=== PATIENT | female | born 1955 | race African-American/Black ===

== ENCOUNTER 2019-11-09 11:55 | Inpatient (IN) | payer MEDICARE ==
[2019-11-09] MEDS ORDERED: Acetaminophen 500 MG TAB PO PRN (19:03)
[2019-11-09] MEDS: INSULIN HUMAN REGULAR 100 UNIT/ML VIAL SUBQ SCH (21:51)
[2019-11-09] MEDS: Insulin Glargine 100 units/ml 10ml Vial SUBQ SCH (21:52)
--- NOTE | 2019-11-09 22:30 | History & Physical ---
ADMIT DATE: 11/09/2019 HISTORY OF PRESENT ILLNESS: The patient is a 64-year-old female with long history of diabetes mellitus, hypertension, degenerative joint disease, and psychosis, admitted to [facility] under Dr. De Guzman's service for evaluation and treatment. The patient is a poor historian. No chest pain, no shortness of breath, no nausea, no vomiting, no fever, no chills. PAST MEDICAL HISTORY: Significant for diabetes mellitus, hypertension, degenerative joint disease, psychosis, and dementia. PAST SURGICAL HISTORY: No recent surgery. ALLERGIES: None. MEDICATIONS: Follow admission reconciliation. SOCIAL HISTORY: No smoking, no alcohol, no drug. FAMILY HISTORY: Noncontributory. REVIEW OF SYSTEMS: RENAL SYSTEM: No history of chronic renal disorder. CARDIOVASCULAR SYSTEM: No coronary artery disease. She has history of hypertension. ENDOCRINE SYSTEM: She has history of diabetes mellitus. GASTROINTESTINAL SYSTEM: No upper or lower gastrointestinal bleed. NEUROLOGICAL SYSTEM: No seizure disorder. SKELETOMUSCULAR SYSTEM: She had degenerative joint disease. PHYSICAL EXAMINATION: GENERAL: She is awake, alert, mildly confused. VITAL SIGNS: Temperature 98.4, heart rate 80, blood pressure 156/75. HEENT: Normocephalic. Pupils reacting equal to light and accommodation. Sclerae clear. NECK: Supple. Negative for lymphadenopathy, JVD or bruit. CHEST: Entry of air bilaterally normal. No rhonchi or wheezing. HEART: S1, S2 normal. No murmur or gallop rhythm. ABDOMEN: Soft, bowel sounds positive. EXTREMITIES: No edema. NEUROLOGIC: She is awake, alert, mildly confused. No focal muscle deficits. Cranial nerves 2-12 are intact. ASSESSMENT: 1. Diabetes mellitus. 2. Hypertension. 3. Degenerative joint disease. 4. Psychosis. PLAN: The patient admitted to the hospital under Dr. De Guzman's service. Medical problems addressed during hospitalization is psychosis. Problems to be addressed at discharge are hypertension, diabetes mellitus, degenerative joint disease. The patient is medically stable for activity. The patient is a full code. Thank you Dr. De Guzman for assisting in the care of your patient. JOB# [id number]
[2019-11-10] MEDS: INSULIN HUMAN REGULAR 100 UNIT/ML VIAL SUBQ SCH (06:51)
[2019-11-10] MEDS ORDERED: Non-Formulary Item 1 EA (Hydrochlorothiazide [Hydrochlorothiazide] 12.5 MG) PO SCH (09:00)
[2019-11-10] MEDS ORDERED: Non-Formulary Item 1 EA (Lisinopril [Lisinopril] 30 MG) PO SCH (09:00)
[2019-11-10] MEDS: INSULIN LISPRO SLIDING SCALE 100 UNITS/ML UNIT SUBQ SCH ×3 (14:02→21:41)
--- NOTE | 2019-11-10 20:26 | Internal Medicine Prog Note ---
Internal Medicine Subjective - Subjective Service Date: 11/10/19 Patient seen and examined:: with staff (SHE IS CONFUSED AND AGITATED) Patient is:: awake, verbal, in bed, talking, agitated, confused Per staff patient has:: no adverse event Internal Medicine Objective - Results Recent Labs: Laboratory Last Values POC Glucose 127 MG/DL (70 - 105) H 11/10/19 16:31 - Physical Exam Vitals and I&O: Vital Signs Temp 97.7 F 11/10/19 14:00 Pulse 94 11/10/19 14:00 Resp 20 11/10/19 14:00 BP 146/82 11/10/19 14:00 Pulse Ox 98 11/10/19 14:00 Intake & Output 11/10/19 11/10/19 11/11/19 06:59 18:59 06:59 Intake Total 240 1200 Balance 240 1200 Weight (lbs) 54.431 kg Intake: Oral 240 1200 Other: # Voids 1 2 # Bowel Movements 0 0 Active Medications: Current Medications Acetaminophen (Tylenol) 650 mg PO Q4HR PRN PRN Reason: Pain (Mild 1-3) Stop: 01/08/20 19:02 Acetaminophen (Tylenol Extra Strength) 1,000 mg PO Q6H PRN PRN Reason: Pain (Moderate 4-6) Stop: 01/08/20 19:02 Divalproex Sodium (Depakote Dr) 500 mg PO BID [facility]; Protocol Stop: 01/09/20 10:59 Last Admin: 11/10/19 17:07 Dose: 500 mg Hydrochlorothiazide (Hctz) 12.5 mg PO DAILY [facility] Stop: 01/09/20 08:59 Last Admin: 11/10/19 09:00 Dose: 12.5 mg Insulin Glargine (Lantus Insulin) 10 units SUBQ HS [facility] Stop: 01/08/20 21:59 Last Admin: 11/09/19 21:52 Dose: Not Given Insulin Human Lispro (Humalog Insulin Sliding Scale) 0 units SUBQ ACHS [facility]; Protocol Stop: 01/08/20 20:59 Last Admin: 11/10/19 17:52 Dose: Not Given Lisinopril 10 mg/ Lisinopril (20 mg) 30 mg PO DAILY [facility] Stop: 01/10/20 08:59 Lorazepam (Ativan) 0.5 mg PO Q6HR PRN; Protocol PRN Reason: Anxiety Stop: 01/08/20 19:02 Quetiapine Fumarate (Seroquel) 50 mg PO BID [facility]; Protocol Stop: 01/09/20 10:59 Last Admin: 11/10/19 17:07 Dose: 50 mg Quetiapine Fumarate (Seroquel) 100 mg PO HS [facility]; Protocol Stop: 01/08/20 20:59 Trazodone HCl (Desyrel) 50 mg PO HS [facility]; Protocol Stop: 01/08/20 20:59 General: demented HEENT: NC/AT, PERRLA, EOMI, anicteric sclerae, throat clear Neck: Supple, No JVD, No thyromegaly, +2 carotid pulse wo bruit, No LAD Lungs: CTAB Cardiovascular: RRR, Normal S1, Normal S2, without murmur Abdomen: non-tender, non-distended Extremities: clear Neurological: no change Internal Medicine Assmt/Plan - Assessment Assessment: 1.DM. 2.HTN. 3.DJD. 4.PSYCHOSIS - Plan Plan: CONTINUE ON CURRENT MEDICATION AND DIET.
[2019-11-10] MEDS: Insulin Glargine 100 units/ml 10ml Vial SUBQ SCH (21:36)
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
[2019-11-11] MEDS: INSULIN LISPRO SLIDING SCALE 100 UNITS/ML UNIT SUBQ SCH ×4 (06:54→20:39)
--- NOTE | 2019-11-11 10:28 | Internal Medicine Prog Note ---
Internal Medicine Subjective - Subjective Service Date: 11/11/19 Patient seen and examined:: without staff (SHE IC), chart reviewed (SHE IS CONFUSED) Patient is:: awake, verbal, in bed, talking, agitated, confused Per staff patient has:: no adverse event Internal Medicine Objective - Results Recent Labs: Laboratory Last Values POC Glucose 127 MG/DL (70 - 105) H 11/10/19 16:31 - Physical Exam Vitals and I&O: Vital Signs Temp 97.1 F 11/11/19 06:40 Pulse 95 11/11/19 09:33 Resp 20 11/11/19 06:40 BP 140/52 11/11/19 09:33 Pulse Ox 97 11/11/19 06:40 Intake & Output 11/10/19 11/11/19 11/11/19 18:59 06:59 18:59 Intake Total 1200 240 Output Total 1 Balance 1200 239 Intake: Oral 1200 240 Output: Urine/Stool Mix 1 Other: # Voids 2 1 # Bowel Movements 0 Active Medications: Current Medications Acetaminophen (Tylenol) 650 mg PO Q4HR PRN PRN Reason: Pain (Mild 1-3) Stop: 01/08/20 19:02 Acetaminophen (Tylenol Extra Strength) 1,000 mg PO Q6H PRN PRN Reason: Pain (Moderate 4-6) Stop: 01/08/20 19:02 Divalproex Sodium (Depakote Dr) 500 mg PO BID [facility]; Protocol Stop: 01/09/20 10:59 Last Admin: 11/11/19 09:30 Dose: 500 mg Donepezil HCl (Aricept) 5 mg PO HS [facility] Stop: 01/10/20 20:59 Hydrochlorothiazide (Hctz) 12.5 mg PO DAILY [facility] Stop: 01/09/20 08:59 Last Admin: 11/11/19 09:31 Dose: 12.5 mg Insulin Glargine (Lantus Insulin) 10 units SUBQ HS [facility] Stop: 01/08/20 21:59 Last Admin: 11/10/19 21:36 Dose: 10 units Insulin Human Lispro (Humalog Insulin Sliding Scale) 0 units SUBQ ACHS [facility]; Protocol Stop: 01/08/20 20:59 Last Admin: 11/11/19 06:54 Dose: Not Given Lisinopril 10 mg/ Lisinopril (20 mg) 30 mg PO DAILY [facility] Stop: 01/10/20 08:59 Last Admin: 11/11/19 09:33 Dose: 30 mg Lorazepam (Ativan) 0.5 mg PO Q6HR PRN; Protocol PRN Reason: Anxiety Stop: 01/08/20 19:02 Quetiapine Fumarate (Seroquel) 50 mg PO BID [facility]; Protocol Stop: 01/09/20 10:59 Last Admin: 11/11/19 09:30 Dose: 50 mg Quetiapine Fumarate (Seroquel) 100 mg PO HS [facility]; Protocol Stop: 01/08/20 20:59 Last Admin: 11/10/19 21:36 Dose: 100 mg Trazodone HCl (Desyrel) 50 mg PO HS [facility]; Protocol Stop: 01/08/20 20:59 Last Admin: 11/10/19 21:36 Dose: 50 mg General: demented HEENT: NC/AT, PERRLA, EOMI, anicteric sclerae, throat clear Neck: Supple, No JVD, No thyromegaly, +2 carotid pulse wo bruit, No LAD Lungs: CTAB Cardiovascular: RRR, Normal S1, Normal S2, without murmur Abdomen: non-tender, non-distended Extremities: clear Neurological: no change Internal Medicine Assmt/Plan - Assessment Assessment: 1.DM. 2.HTN. 3.DJD. 4.PSYCHOSIS - Plan Plan: CONTINUE ON CURRENT MEDICATION AND DIET.
[2019-11-11] MEDS ORDERED: Magnesium Hydroxide (MOM) 30 mL UDC PO PRN (16:21)
--- NOTE | 2019-11-11 18:48 | Progress Notes ---
DATE: 11/11/2019 SUBJECTIVE: Chart was reviewed and the patient interviewed. Also discussed the patient's condition with the staff and reviewed records and labs. The patient continued to be severely confused and forgetful to the point that she is unable to eat on her own and staff has to help her with her eating. The patient also is forgetful and she is still wandering from one patient's room to another and needs close monitoring. The patient also is still having episodes of agitation and irritability with mood swings. Otherwise, the patient is compliant with taking her medications with no side effects of medications. ASSESSMENT: The patient is still severely confused and considered to be gravely disabled. TREATMENT PLAN: We will continue monitoring behavior and condition and continue current medications. We will add Aricept 5 mg at bedtime and we will continue to ____. JOB# [id number]
[2019-11-11] MEDS: Insulin Glargine 100 units/ml 10ml Vial SUBQ SCH (20:40)
[2019-11-12] MEDS: INSULIN LISPRO SLIDING SCALE 100 UNITS/ML UNIT SUBQ SCH ×4 (06:33→20:46)
--- NOTE | 2019-11-12 11:33 | Internal Medicine Prog Note ---
Internal Medicine Subjective - Subjective Service Date: 11/12/19 Patient seen and examined:: with staff (SHE FEELS WELL) Patient is:: awake, verbal, in bed, talking, agitated, confused Per staff patient has:: no adverse event Internal Medicine Objective - Results Recent Labs: Laboratory Last Values POC Glucose 136 MG/DL (70 - 105) H 11/12/19 05:54 - Physical Exam Vitals and I&O: Vital Signs Temp 98.2 F 11/12/19 06:32 Pulse 93 11/12/19 08:56 Resp 18 11/12/19 06:32 BP 149/110 11/12/19 08:56 Pulse Ox 94 11/12/19 06:32 Intake & Output 11/11/19 11/12/19 11/12/19 18:59 06:59 18:59 Intake Total 850 360 Output Total 1 Balance 850 359 Intake: Oral 850 360 Output: Urine/Stool Mix 1 Other: # Voids 3 2 # Bowel Movements 1 0 Active Medications: Current Medications Acetaminophen (Tylenol) 650 mg PO Q4HR PRN PRN Reason: Pain (Mild 1-3) Stop: 01/08/20 19:02 Acetaminophen (Tylenol Extra Strength) 1,000 mg PO Q6H PRN PRN Reason: Pain (Moderate 4-6) Stop: 01/08/20 19:02 Acetaminophen (Tylenol) 650 mg PO Q4HR PRN PRN Reason: Temperature Above 100 Stop: 01/10/20 16:20 Divalproex Sodium (Depakote Dr) 500 mg PO BID [facility]; Protocol Stop: 01/09/20 10:59 Last Admin: 11/12/19 08:54 Dose: 500 mg Donepezil HCl (Aricept) 5 mg PO HS [facility] Stop: 01/10/20 20:59 Last Admin: 11/11/19 21:25 Dose: Not Given Hydrochlorothiazide (Hctz) 12.5 mg PO DAILY [facility] Stop: 01/09/20 08:59 Last Admin: 11/12/19 08:54 Dose: 12.5 mg Insulin Glargine (Lantus Insulin) 10 units SUBQ [facility] Stop: 01/08/20 21:59 Last Admin: 11/11/19 20:40 Dose: 10 units Insulin Human Lispro (Humalog Insulin Sliding Scale) 0 units SUBQ [facility]; Protocol Stop: 01/08/20 20:59 Last Admin: 11/12/19 06:33 Dose: Not Given Lisinopril 10 mg/ Lisinopril (20 mg) 30 mg PO DAILY [facility] Stop: 01/10/20 08:59 Last Admin: 11/12/19 08:56 Dose: 30 mg Lorazepam (Ativan) 0.5 mg PO Q6HR PRN; Protocol PRN Reason: Anxiety Stop: 01/08/20 19:02 Magnesium Hydroxide (Milk Of Magnesia) 30 ml PO HS PRN PRN Reason: Constipation Quetiapine Fumarate (Seroquel) 100 mg PO HS [facility]; Protocol Stop: 01/08/20 20:59 Last Admin: 11/11/19 21:26 Dose: Not Given Quetiapine Fumarate (Seroquel) 100 mg PO BID [facility]; Protocol Stop: 01/11/20 08:59 Last Admin: 11/12/19 08:59 Dose: 100 mg Trazodone HCl (Desyrel) 50 mg PO HS [facility]; Protocol Stop: 01/08/20 20:59 Last Admin: 11/11/19 21:26 Dose: Not Given General: demented HEENT: NC/AT, PERRLA, EOMI, anicteric sclerae, throat clear Neck: Supple, No JVD, No thyromegaly, +2 carotid pulse wo bruit, No LAD Lungs: CTAB Cardiovascular: RRR, Normal S1, Normal S2, without murmur Abdomen: non-tender, non-distended Extremities: clear Neurological: no change Internal Medicine Assmt/Plan - Assessment Assessment: 1.DM. 2.HTN. 3.DJD. 4.PSYCHOSIS - Plan Plan: CONTINUE ON CURRENT MEDICATION AND DIET.
[2019-11-12] MEDS ORDERED: Potassium Chloride 20 mEq ER Tab PO ONE ×3 (17:02→23:00)
[2019-11-12] MEDS: Insulin Glargine 100 units/ml 10ml Vial SUBQ SCH (20:46)
[2019-11-13] MEDS: INSULIN LISPRO SLIDING SCALE 100 UNITS/ML UNIT SUBQ SCH ×4 (06:32→21:43)
--- NOTE | 2019-11-13 10:13 | Progress Notes ---
DATE: SUBJECTIVE: Chart reviewed and the patient interviewed. Also discussed the patient's condition with the staff and reviewed records and labs. The patient is still anxious and is still guarded. The patient also is still confused and in irritable mood and is still resisting care. The patient also is still interacting minimally with others. The patient also still wants to be left alone and is still acting bizarre and yesterday she did not pee on the floor, but personal hygiene is still very poor. Otherwise, the patient is compliant with taking her medications with no side effects of medications. ASSESSMENT: The patient is still confused and needs lots of redirections. TREATMENT PLAN: Continue to monitor behavior and condition closely. Also, continue Depakote 500 mg twice a day and Aricept that will be increased today to 10 mg every day. Also, continue to work on her irritability and confusion and continue to follow up. JOB# [id number]
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
--- NOTE | 2019-11-13 19:36 | Internal Medicine Prog Note ---
Internal Medicine Subjective - Subjective Service Date: 11/13/19 Patient seen and examined:: without staff (SHE FEELS WELL) Patient is:: awake, verbal, in bed, talking, agitated, confused Per staff patient has:: no adverse event Internal Medicine Objective - Results Recent Labs: Laboratory Last Values POC Glucose 141 MG/DL (70 - 105) H 11/13/19 17:01 - Physical Exam Vitals and I&O: Vital Signs Temp 98.0 F 11/12/19 21:06 Pulse 80 11/13/19 09:02 Resp 18 11/13/19 08:00 BP 109/64 11/13/19 09:02 Pulse Ox 94 11/12/19 21:06 Intake & Output 11/13/19 11/13/19 11/14/19 06:59 18:59 06:59 Intake Total 120 1200 Balance 120 1200 Intake: Oral 120 1200 Other: # Voids 2 # Bowel Movements 0 Active Medications: Current Medications Acetaminophen (Tylenol) 650 mg PO Q4HR PRN PRN Reason: Pain (Mild 1-3) Stop: 01/08/20 19:02 Acetaminophen (Tylenol Extra Strength) 1,000 mg PO Q6H PRN PRN Reason: Pain (Moderate 4-6) Stop: 01/08/20 19:02 Acetaminophen (Tylenol) 650 mg PO Q4HR PRN PRN Reason: Temperature Above 100 Stop: 01/10/20 16:20 Divalproex Sodium (Depakote Dr) 500 mg PO BID [facility]; Protocol Stop: 01/09/20 10:59 Last Admin: 11/13/19 17:41 Dose: 500 mg Donepezil HCl (Aricept) 10 mg PO [facility] Stop: 01/12/20 20:59 Hydrochlorothiazide (Hctz) 12.5 mg PO DAILY [facility] Stop: 01/09/20 08:59 Last Admin: 11/13/19 09:02 Dose: Not Given Insulin Glargine (Lantus Insulin) 10 units SUBQ [facility] Stop: 01/08/20 21:59 Last Admin: 11/12/19 20:46 Dose: 10 units Insulin Human Lispro (Humalog Insulin Sliding Scale) 0 units SUBQ [facility]; Protocol Stop: 01/08/20 20:59 Last Admin: 11/13/19 17:04 Dose: Not Given Lisinopril 10 mg/ Lisinopril (20 mg) 30 mg PO DAILY [facility] Stop: 01/10/20 08:59 Last Admin: 11/13/19 09:02 Dose: Not Given Lorazepam (Ativan) 0.5 mg PO Q6HR PRN; Protocol PRN Reason: Anxiety Stop: 01/08/20 19:02 Magnesium Hydroxide (Milk Of Magnesia) 30 ml PO HS PRN PRN Reason: Constipation Quetiapine Fumarate (Seroquel) 100 mg PO HS [facility]; Protocol Stop: 01/08/20 20:59 Last Admin: 11/12/19 20:45 Dose: 100 mg Quetiapine Fumarate (Seroquel) 100 mg PO BID [facility]; Protocol Stop: 01/11/20 08:59 Last Admin: 11/13/19 17:40 Dose: 100 mg Trazodone HCl (Desyrel) 50 mg PO HS [facility]; Protocol Stop: 01/08/20 20:59 Last Admin: 11/12/19 20:45 Dose: 50 mg General: demented HEENT: NC/AT, PERRLA, EOMI, anicteric sclerae, throat clear Neck: Supple, No JVD, No thyromegaly, +2 carotid pulse wo bruit, No LAD Lungs: CTAB Cardiovascular: RRR, Normal S1, Normal S2, without murmur Abdomen: non-tender, non-distended Extremities: clear Neurological: no change Internal Medicine Assmt/Plan - Assessment Assessment: 1.DM. 2.HTN. 3.DJD. 4.PSYCHOSIS - Plan Plan: CONTINUE ON CURRENT MEDICATION AND DIET. Nutritional Asmnt/Malnutr-PDOC - Dietary Evaluation Malnutrition Findings (Please click <Entered> for more info): Nutritional Asmnt/Malnutrition Start: 11/13/19 16: 08 Text: Status: Complete Freq: Protocol: Document 11/13/19 16:08 ELTON (Rec: 11/13/19 16:11 [email or web address]) Nutritional Asmnt/Malnutrition Patient General Information Nutritional Screening Moderate Risk Diagnosis Psychosis Pertinent Medical Hx/Surgical Hx DM, HTN, DJD, Psychosis Subjective Information Pt is a 64-year-old female admitted on 11/09 d/t agitation and psychosis. Pt is eating an estimated 60% of meals x3 days Per Meal/Nutrition Activity Record. Dietary is currently providing an estimated 1900 kcals and 96 gm Pro, per Pt PO intake this is providing an estimated 1140 kcals and 58gm Pro to meet 80% kcal and 100% Pro needs- adequate. Per nurse note (11/13 12:29), Yesterday, patient had abnormally low potassium level , 2.9. Dr. Weiss [Medical Doctor] ordered potassium supplement x 2. At [facility], NOC shift nurse indicated patient took only a partial second dose at 2300. Per Dr. Weiss orders, ripsaw matcher re-deep labs before lunch today. Awaiting results of potassium level. Anthropometrics HT: 5 FT WT: 120 LB (54.55 kg) BMI: 23.46 (Normal) GI/ Skin Integrity GI: WNL, Soft, Non-tender BM: 11/11 x1 I/O: 1320/Not Noted Skin: WNL, Intact Jeancarlos: 14 Diet Order: [facility] Estimated Energy Needs: ( Geriatric, CBW) 8274-6573 kcals (25-30 kcals/ kg) 55-65g Pro (1.0-1.2 g/kg) 4554-5917 ml (25-30 ml/kg) Current Diet Order/ Nutrition Support [facility] Pertinent Medications Hydrochlorothiazide, Lantus, INS-SS, MOM (PRN) Pertinent Labs POC Glucose (last 24 hours): 181, 118, 157 11/12: K 2.9, Glucose 173, BUN/ Cr 32/1.01, GFR 71 Nutritional Hx/Data Height 1.52 m Height (Calculated Centimeters) 152.4 Current Weight (lbs) 54.431 kg Weight (Calculated Kilograms) 54.4 Weight (Calculated Grams) 23249.1 [place] Body Weight 100 LB (45.45 kg) % [place] Body Weight 120 Body Mass Index (BMI) 23.4 Weight Status Approriate GI Symptoms Last BM 11/11 x1 Skin Integrity/Comment: Skin: WNL, Intact Jeancarlos: 14 Current %PO Fair (50-74%) Estimated Nutritional Goals BEE in Kcals: Using Current wt Calories/Kcals/Kg 25-30 Kcals Calculated 9501-8185 Protein: Using Current wt Protein g/k.0-1.2 Protein Calculated 55-65 Fluid: ml 3172-5904 ml (25-30 ml/kg) Nutritional Problem 1. Problem Problem Impaired nutrient utilization Etiology r/t endocrine dysfunction Signs/Symptoms: aeb Hx DM, labs (11/12) Glucose 173, POC Glucose (last 24 hours): 181, 118, 157. Malnutrition Related to Morbid Obesity Malnutrition related to morbid obesity No Intervention/Recommendation Comments 1.Continue CCHO diet as tolerated. 2.Continue antihyperglycemic medications for glucose control per MD order. Expected Outcomes/Goals Expected Outcomes/Goals 1.PO intake to continue to meet >75% of estimated nutritional needs. 2.Monitor PO intake, wt, nutrition related labs, and skin integrity. 3.F/U as low risk in 7-10 days , 11/20-11/23
[2019-11-13] MEDS: Insulin Glargine 100 units/ml 10ml Vial SUBQ SCH (21:37)
[2019-11-14] MEDS: INSULIN LISPRO SLIDING SCALE 100 UNITS/ML UNIT SUBQ SCH ×4 (06:43→20:39)
--- NOTE | 2019-11-14 08:38 | Progress Notes ---
DATE: 11/14/2019 SUBJECTIVE: Chart was reviewed and the patient interviewed. Also discussed the patient's condition with the staff and reviewed records and labs. The patient is still restless and is still extremely agitated. The patient also is still confused and she is still unable to provide any safe plan for self-care. She also is still restless and she still needs lots of redirections. She is unable to feed herself and staff have to monitor and help her with her eating. Otherwise, the patient continued to comply with taking her medications with no side effects of medications. ASSESSMENT: The patient is still confused and is still considered to be gravely disabled. TREATMENT PLAN: We will continue to monitor her behavior and her condition closely. Also, continue adjusting psychotropic medications. Also, we will place the patient on 5250 hold for grave disability and we will continue to follow up. JOB# [id number]
--- NOTE | 2019-11-14 20:23 | Internal Medicine Prog Note ---
Internal Medicine Subjective - Subjective Service Date: 11/14/19 Patient seen and examined:: without staff (SHE IS DOING WELL) Patient is:: awake, verbal, in bed, talking, agitated, confused Per staff patient has:: no adverse event Internal Medicine Objective - Results Recent Labs: Laboratory Last Values POC Glucose 155 MG/DL (70 - 105) H 11/14/19 19:54 - Physical Exam Vitals and I&O: Vital Signs Temp 98.1 F 11/14/19 20:03 Pulse 66 11/14/19 20:03 Resp 20 11/14/19 20:03 BP 124/65 11/14/19 20:03 Pulse Ox 97 11/14/19 20:03 Intake & Output 11/14/19 11/14/19 11/15/19 06:59 18:59 06:59 Intake Total 120 1200 240 Output Total 1 Balance 120 1200 239 Intake: Oral 120 1200 240 Output: Urine/Stool Mix 1 Other: # Voids 3 1 # Bowel Movements 1 1 Active Medications: Current Medications Acetaminophen (Tylenol) 650 mg PO Q4HR PRN PRN Reason: Pain (Mild 1-3) Stop: 01/08/20 19:02 Acetaminophen (Tylenol Extra Strength) 1,000 mg PO Q6H PRN PRN Reason: Pain (Moderate 4-6) Stop: 01/08/20 19:02 Acetaminophen (Tylenol) 650 mg PO Q4HR PRN PRN Reason: Temperature Above 100 Stop: 01/10/20 16:20 Divalproex Sodium (Depakote Dr) 500 mg PO BID [facility]; Protocol Stop: 01/09/20 10:59 Last Admin: 11/14/19 16:22 Dose: 500 mg Donepezil HCl (Aricept) 10 mg PO HS [facility] Stop: 01/12/20 20:59 Last Admin: 11/13/19 21:41 Dose: 10 mg Hydrochlorothiazide (Hctz) 12.5 mg PO DAILY [facility] Stop: 01/09/20 08:59 Last Admin: 11/14/19 08:30 Dose: 12.5 mg Insulin Glargine (Lantus Insulin) 10 units SUBQ HS [facility] Stop: 01/08/20 21:59 Last Admin: 11/13/19 21:37 Dose: 10 units Insulin Human Lispro (Humalog Insulin Sliding Scale) 0 units SUBQ [facility]; Protocol Stop: 01/08/20 20:59 Last Admin: 11/14/19 16:36 Dose: Not Given Lisinopril 10 mg/ Lisinopril (20 mg) 30 mg PO DAILY [facility] Stop: 01/10/20 08:59 Last Admin: 11/14/19 08:29 Dose: 30 mg Lorazepam (Ativan) 0.5 mg PO Q6HR PRN; Protocol PRN Reason: Anxiety Stop: 01/08/20 19:02 Last Admin: 11/14/19 09:05 Dose: 0.5 mg Magnesium Hydroxide (Milk Of Magnesia) 30 ml PO HS PRN PRN Reason: Constipation Quetiapine Fumarate (Seroquel) 100 mg PO HS [facility]; Protocol Stop: 01/08/20 20:59 Last Admin: 11/13/19 21:41 Dose: 100 mg Quetiapine Fumarate (Seroquel) 100 mg PO BID [facility]; Protocol Stop: 01/11/20 08:59 Last Admin: 11/14/19 16:22 Dose: 100 mg Trazodone HCl (Desyrel) 50 mg PO HS [facility]; Protocol Stop: 01/08/20 20:59 Last Admin: 11/13/19 21:41 Dose: 50 mg General: demented HEENT: NC/AT, PERRLA, EOMI, anicteric sclerae, throat clear Neck: Supple, No JVD, No thyromegaly, +2 carotid pulse wo bruit, No LAD Lungs: CTAB Cardiovascular: RRR, Normal S1, Normal S2, without murmur Abdomen: non-tender, non-distended Extremities: clear Neurological: no change Internal Medicine Assmt/Plan - Assessment Assessment: 1.DM. 2.HTN. 3.DJD. 4.PSYCHOSIS - Plan Plan: CONTINUE ON CURRENT MEDICATION AND DIET. Nutritional Asmnt/Malnutr-PDOC - Dietary Evaluation Malnutrition Findings (Please click <Entered> for more info): Nutritional Asmnt/Malnutrition Start: 11/13/19 16: 08 Text: Status: Complete Freq: Protocol: Document 11/13/19 16:08 ELTON (Rec: 11/13/19 16:11 ELTON [id number]) Nutritional Asmnt/Malnutrition Patient General Information Nutritional Screening Moderate Risk Diagnosis Psychosis Pertinent Medical Hx/Surgical Hx DM, HTN, DJD, Psychosis Subjective Information Pt is a 64-year-old female admitted on 11/09 d/t agitation and psychosis. Pt is eating an estimated 60% of meals x3 days Per Meal/Nutrition Activity Record. Dietary is currently providing an estimated 1900 kcals and 96 gm Pro, per Pt PO intake this is providing an estimated 1140 kcals and 58gm Pro to meet 80% kcal and 100% Pro needs- adequate. Per nurse note (11/13 12:29), Yesterday, patient had abnormally low potassium level , 2.9. Dr. Weiss [Medical Doctor] ordered potassium supplement x 2. At [facility], [facility] shift nurse indicated patient took only a partial second dose at 2300. Per Dr. Weiss orders, hat checker re-deep labs before lunch today. Awaiting results of potassium level. Anthropometrics HT: 5 FT WT: 120 LB (54.55 kg) BMI: 23.46 (Normal) GI/ Skin Integrity GI: WNL, Soft, Non-tender BM: 11/11 x1 I/O: 1320/Not Noted Skin: WNL, Intact Jeancarlos: 14 [facility] Estimated Energy Needs: ( Geriatric, CBW) 8558-3623 kcals (25-30 kcals/ kg) 55-65g Pro (1.0-1.2 g/kg) 3318-5730 ml (25-30 ml/kg) Current Diet Order/ Nutrition Support [facility] [place] Pertinent Medications Hydrochlorothiazide, Lantus, INS-SS, MOM (PRN) Pertinent Labs POC Glucose (last 24 hours): 181, 118, 157 11/12: K 2.9, Glucose 173, BUN/ Cr 32/1.01, GFR 71 Nutritional Hx/Data Height 1.52 m Height (Calculated Centimeters) 152.4 Current Weight (lbs) 54.431 kg Weight (Calculated Kilograms) 54.4 Weight (Calculated Grams) 98514.1 [place] Body Weight 100 LB (45.45 kg) % [place] Body Weight 120 Body Mass Index (BMI) 23.4 Weight Status Approriate GI Symptoms Last BM 11/11 x1 Skin Integrity/Comment: Skin: WNL, Intact Jeancarlos: 14 Current %PO Fair (50-74%) Estimated Nutritional Goals BEE in Kcals: Using Current wt Calories/Kcals/Kg 25-30 Kcals Calculated 2436-8411 Protein: Using Current wt Protein g/k.0-1.2 Protein Calculated 55-65 Fluid: ml 5338-2479 ml (25-30 ml/kg) Nutritional Problem 1. Problem Problem Impaired nutrient utilization Etiology r/t endocrine dysfunction Signs/Symptoms: aeb Hx DM, labs (11/12) Glucose 173, POC Glucose (last 24 hours): 181, 118, 157. Malnutrition Related to Morbid Obesity Malnutrition related to morbid obesity No Intervention/Recommendation Comments 1.Continue CCHO diet as tolerated. 2.Continue antihyperglycemic medications for glucose control per MD order. Expected Outcomes/Goals Expected Outcomes/Goals 1.PO intake to continue to meet >75% of estimated nutritional needs. 2.Monitor PO intake, wt, nutrition related labs, and skin integrity. 3.F/U as low risk in 7-10 days , 11/20-11/23
[2019-11-14] MEDS: Insulin Glargine 100 units/ml 10ml Vial SUBQ SCH (20:40)
[2019-11-15] MEDS: INSULIN LISPRO SLIDING SCALE 100 UNITS/ML UNIT SUBQ SCH ×4 (06:52→22:18)
--- NOTE | 2019-11-15 12:54 | General Progress Note ---
Subjective - Review of Systems Service Date: 11/15/19 Subjective: resting comfortably no distress Objective - Results Recent Labs: Laboratory Last Values POC Glucose 182 MG/DL (70 - 105) H 11/15/19 11:14 - Physical Exam Vitals and I&O: Vital Signs Temp 97.1 F 11/15/19 06:25 Pulse 81 11/15/19 08:44 Resp 17 11/15/19 07:57 BP 116/84 11/15/19 08:45 Pulse Ox 97 11/15/19 06:25 Intake & Output 11/14/19 11/15/19 11/15/19 18:59 06:59 18:59 Intake Total 1200 300 Output Total 1 Balance 1200 299 Intake: Oral 1200 300 Output: Urine/Stool Mix 1 Other: # Voids 1 # Bowel Movements 1 0 Active Medications: Current Medications Acetaminophen (Tylenol) 650 mg PO Q4HR PRN PRN Reason: Pain (Mild 1-3) Stop: 01/08/20 19:02 Acetaminophen (Tylenol Extra Strength) 1,000 mg PO Q6H PRN PRN Reason: Pain (Moderate 4-6) Stop: 01/08/20 19:02 Acetaminophen (Tylenol) 650 mg PO Q4HR PRN PRN Reason: Temperature Above 100 Stop: 01/10/20 16:20 Divalproex Sodium (Depakote Dr) 500 mg PO BID [facility]; Protocol Stop: 01/09/20 10:59 Last Admin: 11/15/19 08:43 Dose: 500 mg Donepezil HCl (Aricept) 10 mg PO [facility] Stop: 01/12/20 20:59 Last Admin: 11/14/19 20:37 Dose: 10 mg Hydrochlorothiazide (Hctz) 12.5 mg PO DAILY [facility] Stop: 01/09/20 08:59 Last Admin: 11/15/19 08:45 Dose: 12.5 mg Insulin Glargine (Lantus Insulin) 10 units SUBQ [facility] Stop: 01/08/20 21:59 Last Admin: 11/14/19 20:40 Dose: 10 units Insulin Human Lispro (Humalog Insulin Sliding Scale) 0 units SUBQ [facility]; Protocol Stop: 01/08/20 20:59 Last Admin: 11/15/19 11:19 Dose: 2 units Lisinopril 10 mg/ Lisinopril (20 mg) 30 mg PO DAILY [facility] Stop: 01/10/20 08:59 Last Admin: 11/15/19 08:44 Dose: 30 mg Lorazepam (Ativan) 0.5 mg PO Q6HR PRN; Protocol PRN Reason: Anxiety Stop: 01/08/20 19:02 Last Admin: 11/14/19 09:05 Dose: 0.5 mg Magnesium Hydroxide (Milk Of Magnesia) 30 ml PO HS PRN PRN Reason: Constipation Quetiapine Fumarate (Seroquel) 100 mg PO HS [facility]; Protocol Stop: 01/08/20 20:59 Last Admin: 11/14/19 20:37 Dose: 100 mg Quetiapine Fumarate (Seroquel) 100 mg PO BID [facility]; Protocol Stop: 01/11/20 08:59 Last Admin: 11/15/19 08:45 Dose: 100 mg Trazodone HCl (Desyrel) 50 mg PO HS [facility]; Protocol Stop: 01/08/20 20:59 Last Admin: 11/14/19 20:37 Dose: 50 mg General: No acute distress HEENT: Atraumatic, PERRLA Neck: Supple, JVD, Thyromegaly Cardiovascular: Regular rate, Normal S1, Normal S2 Lungs: Clear to auscultation Abdomen: Bowel sounds, Soft Assessment/Plan - Assessment Assessment: 1.DM. 2.HTN. 3.DJD. 4.PSYCHOSIS - Plan Plan: continue current treatment Nutritional Asmnt/Malnutr-PDOC - Dietary Evaluation Malnutrition Findings (Please click <Entered> for more info): Nutritional Asmnt/Malnutrition Start: 11/13/19 16: 08 Text: Status: Complete Freq: Protocol: Document 11/13/19 16:08 ELTON (Rec: 11/13/19 16:11 ELTON [id number]) Nutritional Asmnt/Malnutrition Patient General Information Nutritional Screening Moderate Risk Diagnosis Psychosis Pertinent Medical Hx/Surgical Hx DM, HTN, DJD, Psychosis Subjective Information Pt is a 64-year-old female admitted on 11/09 d/t agitation and psychosis. Pt is eating an estimated 60% of meals x3 days Per Meal/Nutrition Activity Record. Dietary is currently providing an estimated 1900 kcals and 96 gm Pro, per Pt PO intake this is providing an estimated 1140 kcals and 58gm Pro to meet 80% kcal and 100% Pro needs- adequate. Per nurse note (11/13 12:29), Yesterday, patient had abnormally low potassium level , 2.9. Dr. Weiss [Medical Doctor] ordered potassium supplement x 2. At [facility] shift nurse indicated patient took only a partial second dose at 2300. Per Dr. Weiss orders, global consumer sector vice president re-deep labs before lunch today. Awaiting results of potassium level. Anthropometrics HT: 5 FT WT: 120 LB (54.55 kg) BMI: 23.46 (Normal) GI/ Skin Integrity GI: WNL, Soft, Non-tender BM: 11/11 x1 I/O: 1320/Not Noted Skin: WNL, Intact Jeancarlos: 14 Diet Order: [facility] Estimated Energy Needs: ( Geriatric, CBW) 5975-7033 kcals (25-30 kcals/ kg) 55-65g Pro (1.0-1.2 g/kg) 1592-6001 ml (25-30 ml/kg) Current Diet Order/ Nutrition Support [facility] Pertinent Medications Hydrochlorothiazide, Lantus, INS-SS, MOM (PRN) Pertinent Labs POC Glucose (last 24 hours): 181, 118, 157 11/12: K 2.9, Glucose 173, BUN/ Cr 32/1.01, GFR 71 Nutritional Hx/Data Height 1.52 m Height (Calculated Centimeters) 152.4 Current Weight (lbs) 54.431 kg Weight (Calculated Kilograms) 54.4 Weight (Calculated Grams) 63639.1 [place] Body Weight 100 LB (45.45 kg) % [place] Body Weight 120 Body Mass Index (BMI) 23.4 Weight Status Approriate GI Symptoms Last BM 11/11 x1 Skin Integrity/Comment: Skin: WNL, Intact Jeancarlos: 14 Current %PO Fair (50-74%) Estimated Nutritional Goals BEE in Kcals: Using Current wt Calories/Kcals/Kg 25-30 Kcals Calculated 1526-5226 Protein: Using Current wt Protein g/k.0-1.2 Protein Calculated 55-65 Fluid: ml 4740-6813 ml (25-30 ml/kg) Nutritional Problem 1. Problem Problem Impaired nutrient utilization Etiology r/t endocrine dysfunction Signs/Symptoms: aeb Hx DM, labs (11/12) Glucose 173, POC Glucose (last 24 hours): 181, 118, 157. Malnutrition Related to Morbid Obesity Malnutrition related to morbid obesity No Intervention/Recommendation Comments 1.Continue CCHO diet as tolerated. 2.Continue antihyperglycemic medications for glucose control per MD order. Expected Outcomes/Goals Expected Outcomes/Goals 1.PO intake to continue to meet >75% of estimated nutritional needs. 2.Monitor PO intake, wt, nutrition related labs, and skin integrity. 3.F/U as low risk in 7-10 days , 11/20-11/23
--- NOTE | 2019-11-15 18:17 | Psych Progress Note ---
Psych Progress Note - Intro Date of Progress Note: 11/15/19 - Assessment Assessment: Patient interviewed, case discussed with staff, chart and records reviewed. Dr. Jackson covering for Dr. De Guzman. Per staff reports the patient has been disorganized easily agitated uncooperative with care and needs constant redirection and assistance with ADLs. The patient was poorly cooperative with the interview unwilling to speak with this provider unable to provide obtain any history at this time. - Vitals, I&O Vitals: Vital Signs - 24 hr 11/14/19 11/15/19 11/15/19 20:03 06:25 07:57 Temp 98.1 F 97.1 F HR 66 81 RR 20 19 17 BP 124/65 116/84 O2 Sat % 97 97 11/15/19 11/15/19 11/15/19 08:44 08:45 14:53 Temp 97.5 F HR 81 84 RR 20 BP 116/84 116/84 105/84 O2 Sat % 96 - Plan Plan: Continues with poor insight and poor judgment and significant thought disorganization. Continue current treatment plan and continue to monitor behaviors. - Review of Relevant Data Review of Relevant Data: I have reviewed the following items and time katie (where applicable) has been applied. - Medications Current Medications: Current Medications Acetaminophen (Tylenol) 650 mg PO Q4HR PRN PRN Reason: Pain (Mild 1-3) Stop: 01/08/20 19:02 Acetaminophen (Tylenol Extra Strength) 1,000 mg PO Q6H PRN PRN Reason: Pain (Moderate 4-6) Stop: 01/08/20 19:02 Acetaminophen (Tylenol) 650 mg PO Q4HR PRN PRN Reason: Temperature Above 100 Stop: 01/10/20 16:20 Divalproex Sodium (Depakote Dr) 500 mg PO BID [facility]; Protocol Stop: 01/09/20 10:59 Last Admin: 11/15/19 16:40 Dose: 500 mg Donepezil HCl (Aricept) 10 mg PO HS [facility] Stop: 01/12/20 20:59 Last Admin: 11/14/19 20:37 Dose: 10 mg Hydrochlorothiazide (Hctz) 12.5 mg PO DAILY [facility] Stop: 01/09/20 08:59 Last Admin: 11/15/19 08:45 Dose: 12.5 mg Insulin Glargine (Lantus Insulin) 10 units SUBQ [facility] Stop: 01/08/20 21:59 Last Admin: 11/14/19 20:40 Dose: 10 units Insulin Human Lispro (Humalog Insulin Sliding Scale) 0 units SUBQ [facility]; Protocol Stop: 01/08/20 20:59 Last Admin: 11/15/19 16:22 Dose: Not Given Lisinopril 10 mg/ Lisinopril (20 mg) 30 mg PO DAILY [facility] Stop: 01/10/20 08:59 Last Admin: 11/15/19 08:44 Dose: 30 mg Lorazepam (Ativan) 0.5 mg PO Q6HR PRN; Protocol PRN Reason: Anxiety Stop: 01/08/20 19:02 Last Admin: 11/14/19 09:05 Dose: 0.5 mg Magnesium Hydroxide (Milk Of Magnesia) 30 ml PO HS PRN PRN Reason: Constipation Quetiapine Fumarate (Seroquel) 100 mg PO [facility]; Protocol Stop: 01/08/20 20:59 Last Admin: 11/14/19 20:37 Dose: 100 mg Quetiapine Fumarate (Seroquel) 100 mg PO BID [facility]; Protocol Stop: 01/11/20 08:59 Last Admin: 11/15/19 16:40 Dose: 100 mg Trazodone HCl (Desyrel) 50 mg PO [facility]; Protocol Stop: 01/08/20 20:59 Last Admin: 11/14/19 20:37 Dose: 50 mg
[2019-11-15] MEDS: Insulin Glargine 100 units/ml 10ml Vial SUBQ SCH (22:17)
[2019-11-16] MEDS: INSULIN LISPRO SLIDING SCALE 100 UNITS/ML UNIT SUBQ SCH ×4 (06:36→20:47)
--- NOTE | 2019-11-16 07:57 | Progress Notes ---
DATE: 11/16/2019 SUBJECTIVE: A 64-year-old female transferred from [facility] agitation and psychosis, irritability, anger on [id number], the patient is sleeping, arousable, but refusing to speak with me. Slept about 8-9 hours. Ongoing symptoms, concerns for impulse control, needing a lot of redirection, prompting, poor orientation. Medications were noted. We will continue inpatient monitoring, history of dementia. JOB# [id number]
--- NOTE | 2019-11-16 12:44 | General Progress Note ---
Subjective - Review of Systems Service Date: 11/16/19 Subjective: resting comfortably no distress Objective - Results Recent Labs: Laboratory Last Values POC Glucose 149 MG/DL (70 - 105) H 11/16/19 11:03 - Physical Exam Vitals and I&O: Vital Signs Temp 97.0 F 11/16/19 06:02 Pulse 69 11/16/19 09:23 Resp 19 11/16/19 06:02 BP 110/64 11/16/19 09:24 Pulse Ox 99 11/16/19 06:02 Intake & Output 11/15/19 11/16/19 11/16/19 18:59 06:59 18:59 Intake Total 900 300 Balance 900 300 Intake: Oral 900 300 Other: # Voids 4 1 # Bowel Movements 0 0 Active Medications: Current Medications Acetaminophen (Tylenol) 650 mg PO Q4HR PRN PRN Reason: Pain (Mild 1-3) Stop: 01/08/20 19:02 Acetaminophen (Tylenol Extra Strength) 1,000 mg PO Q6H PRN PRN Reason: Pain (Moderate 4-6) Stop: 01/08/20 19:02 Acetaminophen (Tylenol) 650 mg PO Q4HR PRN PRN Reason: Temperature Above 100 Stop: 01/10/20 16:20 Divalproex Sodium (Depakote Dr) 500 mg PO BID [facility]; Protocol Stop: 01/09/20 10:59 Last Admin: 11/16/19 09:24 Dose: 500 mg Donepezil HCl (Aricept) 10 mg PO [facility] Stop: 01/12/20 20:59 Last Admin: 11/15/19 21:54 Dose: 10 mg Hydrochlorothiazide (Hctz) 12.5 mg PO DAILY [facility] Stop: 01/09/20 08:59 Last Admin: 11/16/19 09:24 Dose: 12.5 mg Insulin Glargine (Lantus Insulin) 10 units SUBQ HS [facility] Stop: 01/08/20 21:59 Last Admin: 11/15/19 22:17 Dose: 10 units Insulin Human Lispro (Humalog Insulin Sliding Scale) 0 units SUBQ [facility]; Protocol Stop: 01/08/20 20:59 Last Admin: 11/16/19 11:24 Dose: Not Given Lisinopril 10 mg/ Lisinopril (20 mg) 30 mg PO DAILY [facility] Stop: 01/10/20 08:59 Last Admin: 11/16/19 09:23 Dose: 30 mg Lorazepam (Ativan) 0.5 mg PO Q6HR PRN; Protocol PRN Reason: Anxiety Stop: 01/08/20 19:02 Last Admin: 11/15/19 21:54 Dose: 0.5 mg Magnesium Hydroxide (Milk Of Magnesia) 30 ml PO HS PRN PRN Reason: Constipation Quetiapine Fumarate (Seroquel) 100 mg PO HS [facility]; Protocol Stop: 01/08/20 20:59 Last Admin: 11/15/19 21:54 Dose: 100 mg Quetiapine Fumarate (Seroquel) 100 mg PO BID [facility]; Protocol Stop: 01/11/20 08:59 Last Admin: 11/16/19 09:24 Dose: 100 mg Trazodone HCl (Desyrel) 50 mg PO HS [facility]; Protocol Stop: 01/08/20 20:59 Last Admin: 11/15/19 21:54 Dose: 50 mg General: No acute distress HEENT: Atraumatic, PERRLA Neck: Supple, JVD, Thyromegaly Cardiovascular: Regular rate, Normal S1, Normal S2 Lungs: Clear to auscultation Abdomen: Bowel sounds, Soft Assessment/Plan - Assessment Assessment: 1.DM. 2.HTN. 3.DJD. 4.PSYCHOSIS - Plan Plan: continue current treatment Nutritional Asmnt/Malnutr-PDOC - Dietary Evaluation Malnutrition Findings (Please click <Entered> for more info): Nutritional Asmnt/Malnutrition Start: 11/13/19 16: 08 Text: Status: Complete Freq: Protocol: Document 11/13/19 16:08 ELTON (Rec: 11/13/19 16:11 ELTON [id number]) Nutritional Asmnt/Malnutrition Patient General Information Nutritional Screening Moderate Risk Diagnosis Psychosis Pertinent Medical Hx/Surgical Hx DM, HTN, DJD, Psychosis Subjective Information Pt is a 64-year-old female admitted on 11/09 d/t agitation and psychosis. Pt is eating an estimated 60% of meals x3 days Per Meal/Nutrition Activity Record. Dietary is currently providing an estimated 1900 kcals and 96 gm Pro, per Pt PO intake this is providing an estimated 1140 kcals and 58gm Pro to meet 80% kcal and 100% Pro needs- adequate. Per nurse note (11/13 12:29), Yesterday, patient had abnormally low potassium level , 2.9. Dr. Wiess [Medical Doctor] ordered potassium supplement x 2. At [facility] shift nurse indicated patient took only a partial second dose at 2300. Per Dr. Weiss orders, custom bow maker re-deep labs before lunch today. Awaiting results of potassium level. Anthropometrics HT: 5 FT WT: 120 LB (54.55 kg) BMI: 23.46 (Normal) GI/ Skin Integrity GI: WNL, Soft, Non-tender BM: 11/11 x1 I/O: 1320/Not Noted Skin: WNL, Intact Jeancarlos: 14 Diet Order: [facility] Estimated Energy Needs: ( Geriatric, CBW) 7282-8444 kcals (25-30 kcals/ kg) 55-65g Pro (1.0-1.2 g/kg) 6939-2798 ml (25-30 ml/kg) Current Diet Order/ Nutrition Support [facility] Pertinent Medications Hydrochlorothiazide, Lantus, INS-SS, MOM (PRN) Pertinent Labs POC Glucose (last 24 hours): 181, 118, 157 11/12: K 2.9, Glucose 173, BUN/ Cr 32/1.01, GFR 71 Nutritional Hx/Data Height 1.52 m Height (Calculated Centimeters) 152.4 Current Weight (lbs) 54.431 kg Weight (Calculated Kilograms) 54.4 Weight (Calculated Grams) 05902.1 [place] Body Weight 100 LB (45.45 kg) % [place] Body Weight 120 Body Mass Index (BMI) 23.4 Weight Status Approriate GI Symptoms Last BM 11/11 x1 Skin Integrity/Comment: Skin: WNL, Intact Jeancarlos: 14 Current %PO Fair (50-74%) Estimated Nutritional Goals BEE in Kcals: Using Current wt Calories/Kcals/Kg 25-30 Kcals Calculated 9532-4597 Protein: Using Current wt Protein g/k.0-1.2 Protein Calculated 55-65 Fluid: ml 2410-3962 ml (25-30 ml/kg) Nutritional Problem 1. Problem Problem Impaired nutrient utilization Etiology r/t endocrine dysfunction Signs/Symptoms: aeb Hx DM, labs (11/12) Glucose 173, POC Glucose (last 24 hours): 181, 118, 157. Malnutrition Related to Morbid Obesity Malnutrition related to morbid obesity No Intervention/Recommendation Comments 1.Continue CCHO diet as tolerated. 2.Continue antihyperglycemic medications for glucose control per MD order. Expected Outcomes/Goals Expected Outcomes/Goals 1.PO intake to continue to meet >75% of estimated nutritional needs. 2.Monitor PO intake, wt, nutrition related labs, and skin integrity. 3.F/U as low risk in 7-10 days , 11/20-11/23
[2019-11-16] MEDS: Insulin Glargine 100 units/ml 10ml Vial SUBQ SCH (20:45)
[2019-11-17] MEDS: INSULIN LISPRO SLIDING SCALE 100 UNITS/ML UNIT SUBQ SCH ×4 (07:11→21:27)
[2019-11-17 16:07] VITALS: BP 163/90
--- NOTE | 2019-11-17 20:01 | Internal Medicine Prog Note ---
Internal Medicine Subjective - Subjective Service Date: 11/17/19 Patient seen and examined:: without staff (SHE IS CONFUSED) Patient is:: awake, verbal, in bed, talking, agitated, confused Per staff patient has:: no adverse event Internal Medicine Objective - Results Recent Labs: Laboratory Last Values POC Glucose 87 MG/DL (70 - 105) 11/17/19 06:33 - Physical Exam Vitals and I&O: Vital Signs Temp 97.8 F 11/17/19 14:00 Pulse 79 11/17/19 14:00 Resp 18 11/17/19 14:00 BP 127/71 11/17/19 14:00 Pulse Ox 100 11/17/19 14:00 Intake & Output 11/17/19 11/17/19 11/18/19 06:59 18:59 06:59 Intake Total 240 880 Output Total 1 Balance 239 880 Intake: Oral 240 640 Other 240 Output: Urine/Stool Mix 1 Other: # Voids 3 3 # Bowel Movements 0 1 Active Medications: Current Medications Acetaminophen (Tylenol) 650 mg PO Q4HR PRN PRN Reason: Pain (Mild 1-3) Stop: 01/08/20 19:02 Acetaminophen (Tylenol Extra Strength) 1,000 mg PO Q6H PRN PRN Reason: Pain (Moderate 4-6) Stop: 01/08/20 19:02 Acetaminophen (Tylenol) 650 mg PO Q4HR PRN PRN Reason: Temperature Above 100 Stop: 01/10/20 16:20 Divalproex Sodium (Depakote Dr) 500 mg PO BID [facility]; Protocol Stop: 01/09/20 10:59 Last Admin: 11/17/19 16:26 Dose: Not Given Donepezil HCl (Aricept) 10 mg PO HS [facility] Stop: 01/12/20 20:59 Last Admin: 11/16/19 20:42 Dose: 10 mg Hydrochlorothiazide (Hctz) 12.5 mg PO DAILY [facility] Stop: 01/09/20 08:59 Last Admin: 11/17/19 08:34 Dose: 12.5 mg Insulin Glargine (Lantus Insulin) 10 units SUBQ HS [facility] Stop: 01/08/20 21:59 Last Admin: 11/16/19 20:45 Dose: 10 units Insulin Human Lispro (Humalog Insulin Sliding Scale) 0 units SUBQ [facility]; Protocol Stop: 01/08/20 20:59 Last Admin: 11/17/19 16:26 Dose: Not Given Lisinopril 10 mg/ Lisinopril (20 mg) 30 mg PO DAILY [facility] Stop: 01/10/20 08:59 Last Admin: 11/17/19 08:35 Dose: 30 mg Lorazepam (Ativan) 0.5 mg PO Q6HR PRN; Protocol PRN Reason: Anxiety Stop: 01/08/20 19:02 Last Admin: 11/16/19 20:44 Dose: 0.5 mg Magnesium Hydroxide (Milk Of Magnesia) 30 ml PO HS PRN PRN Reason: Constipation Quetiapine Fumarate (Seroquel) 100 mg PO HS [facility]; Protocol Stop: 01/08/20 20:59 Last Admin: 11/16/19 20:43 Dose: 100 mg Quetiapine Fumarate (Seroquel) 100 mg PO BID [facility]; Protocol Stop: 01/11/20 08:59 Last Admin: 11/17/19 16:26 Dose: Not Given Trazodone HCl (Desyrel) 50 mg PO HS [facility]; Protocol Stop: 01/08/20 20:59 Last Admin: 11/16/19 20:42 Dose: 50 mg General: demented HEENT: NC/AT, PERRLA, EOMI, anicteric sclerae, throat clear Neck: Supple, No JVD, No thyromegaly, +2 carotid pulse wo bruit, No LAD Lungs: CTAB Cardiovascular: RRR, Normal S1, Normal S2, without murmur Abdomen: non-tender, non-distended Extremities: clear Neurological: no change Internal Medicine Assmt/Plan - Assessment Assessment: 1.DM. 2.HTN. 3.DJD. 4.PSYCHOSIS - Plan Plan: CONTINUE ON CURRENT MEDICATION AND DIET. Nutritional Asmnt/Malnutr-PDOC - Dietary Evaluation Malnutrition Findings (Please click <Entered> for more info): Nutritional Asmnt/Malnutrition Start: 11/13/19 16: 08 Text: Status: Complete Freq: Protocol: Document 11/13/19 16:08 ELTON (Rec: 11/13/19 16:11 ELTON [email or web address]) Nutritional Asmnt/Malnutrition Patient General Information Nutritional Screening Moderate Risk Diagnosis Psychosis Pertinent Medical Hx/Surgical Hx DM, HTN, DJD, Psychosis Subjective Information Pt is a 64-year-old female admitted on 11/09 d/t agitation and psychosis. Pt is eating an estimated 60% of meals x3 days Per Meal/Nutrition Activity Record. Dietary is currently providing an estimated 1900 kcals and 96 gm Pro, per Pt PO intake this is providing an estimated 1140 kcals and 58gm Pro to meet 80% kcal and 100% Pro needs- adequate. Per nurse note (11/13 12:29), Yesterday, patient had abnormally low potassium level , 2.9. Dr. Weiss [Medical Doctor] ordered potassium supplement x 2. At [facility], NOC shift nurse indicated patient took only a partial second dose at 2300. Per Dr. Weiss orders, personal care home administrator re-deep labs before lunch today. Awaiting results of potassium level. Anthropometrics HT: 5 FT WT: 120 LB (54.55 kg) BMI: 23.46 (Normal) GI/ Skin Integrity GI: WNL, Soft, Non-tender BM: 11/11 x1 I/O: 1320/Not Noted Skin: WNL, Intact Jeancarlos: 14 [facility] Estimated Energy Needs: ( Geriatric, CBW) 4081-1963 kcals (25-30 kcals/ kg) 55-65g Pro (1.0-1.2 g/kg) 1465-7753 ml (25-30 ml/kg) Current Diet Order/ Nutrition Support [facility] [place] Pertinent Medications Hydrochlorothiazide, Lantus, INS-SS, MOM (PRN) Pertinent Labs POC Glucose (last 24 hours): 181, 118, 157 11/12: K 2.9, Glucose 173, BUN/ Cr 32/1.01, GFR 71 Nutritional Hx/Data Height 1.52 m Height (Calculated Centimeters) 152.4 Current Weight (lbs) 54.431 kg Weight (Calculated Kilograms) 54.4 Weight (Calculated Grams) 43348.1 [place] Body Weight 100 LB (45.45 kg) % [place] Body Weight 120 Body Mass Index (BMI) 23.4 Weight Status Approriate GI Symptoms Last BM 11/11 x1 Skin Integrity/Comment: Skin: WNL, Intact Jeancarlos: 14 Current %PO Fair (50-74%) Estimated Nutritional Goals BEE in Kcals: Using Current wt Calories/Kcals/Kg 25-30 Kcals Calculated 8328-5489 Protein: Using Current wt Protein g/k.0-1.2 Protein Calculated 55-65 Fluid: ml 1603-8864 ml (25-30 ml/kg) Nutritional Problem 1. Problem Problem Impaired nutrient utilization Etiology r/t endocrine dysfunction Signs/Symptoms: aeb Hx DM, labs (11/12) Glucose 173, POC Glucose (last 24 hours): 181, 118, 157. Malnutrition Related to Morbid Obesity Malnutrition related to morbid obesity No Intervention/Recommendation Comments 1.Continue CCHO diet as tolerated. 2.Continue antihyperglycemic medications for glucose control per MD order. Expected Outcomes/Goals Expected Outcomes/Goals 1.PO intake to continue to meet >75% of estimated nutritional needs. 2.Monitor PO intake, wt, nutrition related labs, and skin integrity. 3.F/U as low risk in 7-10 days , 11/20-11/23
[2019-11-17] MEDS: Insulin Glargine 100 units/ml 10ml Vial SUBQ SCH (21:26)
[2019-11-18] MEDS: INSULIN LISPRO SLIDING SCALE 100 UNITS/ML UNIT SUBQ SCH ×4 (06:53→21:09)
--- NOTE | 2019-11-18 09:48 | Progress Notes ---
DATE: 11/17/2019 SUBJECTIVE: Chart was reviewed and the patient interviewed. Also discussed the patient's condition with the staff and reviewed records and labs. The patient is still anxious and is still in a depressed mood. The patient also is still restless and wants to be left alone and isolate herself. The patient also is still argumentative and is still aggressive with the staff. Also, still hallucinating and talking to herself. Otherwise, the patient continues to compliance taking her Seroquel and Depakote as well as Aricept with no side effects. ASSESSMENT: The patient is still psychotic and needs close monitoring. TREATMENT PLAN: Continue to monitor behavior and condition closely and continue adjusting psychotropic medications and work on her irritability and agitation. [facility]# [id number]
--- NOTE | 2019-11-18 16:27 | Progress Notes ---
DATE: 11/18/2019 PSYCHIATRIC PROGRESS NOTE SUBJECTIVE: Chart reviewed and the patient interviewed. Also discussed the patient's condition with the staff and reviewed records and labs. The patient is still very manicky and is still very irritable. The patient also is still suspicious and is still paranoid. The patient also is still unkempt and ADLs are poor. She is also rambling and she is still asking to go to "[place]," but she does not know exactly where to go and she is still unable to provide any safe plan for self-care. Also, she is still easily irritable and easily agitated. ASSESSMENT: The patient is still manicky and is still in irritable and angry mood. TREATMENT PLAN: Continue to monitor behavior and condition closely. Also, we will increase Seroquel to 100 mg twice a day. Also, get Depakote blood level and continue to follow up closely. JOB# [id number]
[2019-11-18] MEDS: Insulin Glargine 100 units/ml 10ml Vial SUBQ SCH (21:08)
--- NOTE | 2019-11-18 21:53 | Internal Medicine Prog Note ---
Internal Medicine Subjective - Subjective Service Date: 11/18/19 Patient seen and examined:: without staff (SHE IS DOING WELL) Patient is:: awake, verbal, in bed, talking, agitated, confused Per staff patient has:: no adverse event Internal Medicine Objective - Results Recent Labs: Laboratory Last Values POC Glucose 109 MG/DL (70 - 105) H 11/18/19 20:42 - Physical Exam Vitals and I&O: Vital Signs Temp 97 F 11/18/19 20:00 Pulse 83 11/18/19 20:00 Resp 18 11/18/19 20:00 BP 129/73 11/18/19 20:00 Pulse Ox 99 11/18/19 20:00 Intake & Output 11/18/19 11/18/19 11/19/19 06:59 18:59 06:59 Intake Total 120 1200 Balance 120 1200 Intake: Oral 120 1200 Other: # Voids 3 3 # Bowel Movements 0 0 Active Medications: Current Medications Acetaminophen (Tylenol) 650 mg PO Q4HR PRN PRN Reason: Pain (Mild 1-3) Stop: 01/08/20 19:02 Acetaminophen (Tylenol Extra Strength) 1,000 mg PO Q6H PRN PRN Reason: Pain (Moderate 4-6) Stop: 01/08/20 19:02 Acetaminophen (Tylenol) 650 mg PO Q4HR PRN PRN Reason: Temperature Above 100 Stop: 01/10/20 16:20 Divalproex Sodium (Depakote Dr) 500 mg PO BID [facility]; Protocol Stop: 01/09/20 10:59 Last Admin: 11/18/19 17:35 Dose: 500 mg Donepezil HCl (Aricept) 10 mg PO [facility] Stop: 01/12/20 20:59 Last Admin: 11/18/19 20:55 Dose: 10 mg Hydrochlorothiazide (Hctz) 12.5 mg PO DAILY [facility] Stop: 01/09/20 08:59 Last Admin: 11/18/19 09:43 Dose: 12.5 mg Insulin Glargine (Lantus Insulin) 10 units SUBQ [facility] Stop: 01/08/20 21:59 Last Admin: 11/18/19 21:08 Dose: 10 units Insulin Human Lispro (Humalog Insulin Sliding Scale) 0 units SUBQ [facility]; Protocol Stop: 03/26/20 20:59 Last Admin: 11/18/19 21:09 Dose: Not Given Lisinopril 10 mg/ Lisinopril (20 mg) 30 mg PO DAILY [facility] Stop: 01/10/20 08:59 Last Admin: 11/18/19 09:42 Dose: 30 mg Lorazepam (Ativan) 0.5 mg PO Q6HR PRN; Protocol PRN Reason: Anxiety Stop: 01/08/20 19:02 Last Admin: 11/18/19 20:55 Dose: 0.5 mg Magnesium Hydroxide (Milk Of Magnesia) 30 ml PO HS PRN PRN Reason: Constipation Quetiapine Fumarate (Seroquel) 100 mg PO BID [facility]; Protocol Stop: 01/17/20 08:59 Last Admin: 11/18/19 17:35 Dose: 100 mg Trazodone HCl (Desyrel) 50 mg PO HS [facility]; Protocol Stop: 01/08/20 20:59 Last Admin: 11/18/19 20:55 Dose: 50 mg General: demented HEENT: NC/AT, PERRLA, EOMI, anicteric sclerae, throat clear Neck: Supple, No JVD, No thyromegaly, +2 carotid pulse wo bruit, No LAD Lungs: CTAB Cardiovascular: RRR, Normal S1, Normal S2, without murmur Abdomen: non-tender, non-distended Extremities: clear Neurological: no change Internal Medicine Assmt/Plan - Assessment Assessment: 1.DM. 2.HTN. 3.DJD. 4.PSYCHOSIS - Plan Plan: CONTINUE ON CURRENT MEDICATION AND DIET. Nutritional Asmnt/Malnutr-PDOC - Dietary Evaluation Malnutrition Findings (Please click <Entered> for more info): Nutritional Asmnt/Malnutrition Start: 11/13/19 16: 08 Text: Status: Complete Freq: Protocol: Document 11/13/19 16:08 ELTON (Rec: 11/13/19 16:11 ELTON [email or web address]) Nutritional Asmnt/Malnutrition Patient General Information Nutritional Screening Moderate Risk Diagnosis Psychosis Pertinent Medical Hx/Surgical Hx DM, HTN, DJD, Psychosis Subjective Information Pt is a 64-year-old female admitted on 11/09 d/t agitation and psychosis. Pt is eating an estimated 60% of meals x3 days Per Meal/Nutrition Activity Record. Dietary is currently providing an estimated 1900 kcals and 96 gm Pro, per Pt PO intake this is providing an estimated 1140 kcals and 58gm Pro to meet 80% kcal and 100% Pro needs- adequate. Per nurse note (11/13 12:29), Yesterday, patient had abnormally low potassium level , 2.9. Dr. Weiss [Medical Doctor] ordered potassium supplement x 2. At [facility], NOC shift nurse indicated patient took only a partial second dose at 2300. Per Dr. Weiss orders, machine container washer re-deep labs before lunch today. Awaiting results of potassium level. Anthropometrics HT: 5 FT WT: 120 LB (54.55 kg) BMI: 23.46 (Normal) GI/ Skin Integrity GI: WNL, Soft, Non-tender BM: 11/11 x1 I/O: 1320/Not Noted Skin: WNL, Intact Jeancarlos: 14 Diet Order: [facility] Estimated Energy Needs: ( Geriatric, CBW) 6575-4478 kcals (25-30 kcals/ kg) 55-65g Pro (1.0-1.2 g/kg) 6594-4390 ml (25-30 ml/kg) Current Diet Order/ Nutrition Support [facility] Pertinent Medications Hydrochlorothiazide, Lantus, INS-SS, MOM (PRN) Pertinent Labs POC Glucose (last 24 hours): 181, 118, 157 11/12: K 2.9, Glucose 173, BUN/ Cr 32/1.01, GFR 71 Nutritional Hx/Data Height 1.52 m Height (Calculated Centimeters) 152.4 Current Weight (lbs) 54.431 kg Weight (Calculated Kilograms) 54.4 Weight (Calculated Grams) 79126.1 [place] Body Weight 100 LB (45.45 kg) % [place] Body Weight 120 Body Mass Index (BMI) 23.4 Weight Status Approriate GI Symptoms Last BM 11/11 x1 Skin Integrity/Comment: Skin: WNL, Intact Jeancarlos: 14 Current %PO Fair (50-74%) Estimated Nutritional Goals BEE in Kcals: Using Current wt Calories/Kcals/Kg 25-30 Kcals Calculated 6968-0756 Protein: Using Current wt Protein g/k.0-1.2 Protein Calculated 55-65 Fluid: ml 1452-2349 ml (25-30 ml/kg) Nutritional Problem 1. Problem Problem Impaired nutrient utilization Etiology r/t endocrine dysfunction Signs/Symptoms: aeb Hx DM, labs (11/12) Glucose 173, POC Glucose (last 24 hours): 181, 118, 157. Malnutrition Related to Morbid Obesity Malnutrition related to morbid obesity No Intervention/Recommendation Comments 1.Continue CCHO diet as tolerated. 2.Continue antihyperglycemic medications for glucose control per MD order. Expected Outcomes/Goals Expected Outcomes/Goals 1.PO intake to continue to meet >75% of estimated nutritional needs. 2.Monitor PO intake, wt, nutrition related labs, and skin integrity. 3.F/U as low risk in 7-10 days , 11/20-11/23
[2019-11-19] MEDS: INSULIN LISPRO SLIDING SCALE 100 UNITS/ML UNIT SUBQ SCH ×4 (06:33→20:49)
--- NOTE | 2019-11-19 07:28 | Progress Notes ---
DATE: 11/19/2019 SUBJECTIVE: Chart was reviewed and the patient interviewed. Also discussed the patient's condition with the staff and reviewed records and labs. The patient is still easily agitated and is still in angry and in irritable mood. The patient also is still hyperverbal and still has difficulty with her mood. She also is still having severe mood swings. The patient also still needs close monitoring. Otherwise, the patient is compliant with taking her medications with no side effects of medications. Also, Seroquel was increased to 100 mg twice a day with no side effects. ASSESSMENT: The patient is still irritable and is exhibiting manic behavior. TREATMENT PLAN: Continue monitoring behavior and condition closely. Also, Depakote blood level is pending. JOB# [id number]
--- NOTE | 2019-11-19 19:36 | Internal Medicine Prog Note ---
Internal Medicine Subjective - Subjective Service Date: 11/19/19 Patient seen and examined:: without staff (SHE FEELS WELL) Patient is:: awake, verbal, in bed, talking, agitated, confused Per staff patient has:: no adverse event Internal Medicine Objective - Results Recent Labs: Laboratory Last Values POC Glucose 137 MG/DL (70 - 105) H 11/19/19 16:42 - Physical Exam Vitals and I&O: Vital Signs Temp 97.8 F 11/19/19 14:00 Pulse 77 11/19/19 14:00 Resp 18 11/19/19 14:00 BP 149/71 11/19/19 14:00 Pulse Ox 100 11/19/19 14:00 Intake & Output 11/19/19 11/19/19 11/20/19 06:59 18:59 06:59 Intake Total 120 800 Balance 120 800 Intake: Oral 120 800 Other: # Voids 3 3 # Bowel Movements 0 Active Medications: Current Medications Acetaminophen (Tylenol) 650 mg PO Q4HR PRN PRN Reason: Pain (Mild 1-3) Stop: 01/08/20 19:02 Acetaminophen (Tylenol Extra Strength) 1,000 mg PO Q6H PRN PRN Reason: Pain (Moderate 4-6) Stop: 01/08/20 19:02 Acetaminophen (Tylenol) 650 mg PO Q4HR PRN PRN Reason: Temperature Above 100 Stop: 01/10/20 16:20 Divalproex Sodium (Depakote Dr) 500 mg PO BID [facility]; Protocol Stop: 01/09/20 10:59 Last Admin: 11/19/19 17:14 Dose: 500 mg Donepezil HCl (Aricept) 10 mg PO [facility] Stop: 01/12/20 20:59 Last Admin: 11/18/19 20:55 Dose: 10 mg Hydrochlorothiazide (Hctz) 12.5 mg PO DAILY [facility] Stop: 01/09/20 08:59 Last Admin: 11/19/19 09:49 Dose: 12.5 mg Insulin Glargine (Lantus Insulin) 10 units SUBQ [facility] Stop: 01/08/20 21:59 Last Admin: 11/18/19 21:08 Dose: 10 units Insulin Human Lispro (Humalog Insulin Sliding Scale) 0 units SUBQ [facility]; Protocol Stop: 01/08/20 20:59 Last Admin: 11/19/19 16:45 Dose: Not Given Lisinopril 10 mg/ Lisinopril (20 mg) 30 mg PO DAILY [facility] Stop: 01/10/20 08:59 Last Admin: 11/19/19 09:50 Dose: 30 mg Lorazepam (Ativan) 0.5 mg PO Q6HR PRN; Protocol PRN Reason: Anxiety Stop: 01/08/20 19:02 Last Admin: 11/18/19 20:55 Dose: 0.5 mg Magnesium Hydroxide (Milk Of Magnesia) 30 ml PO HS PRN PRN Reason: Constipation Quetiapine Fumarate (Seroquel) 100 mg PO BID [facility]; Protocol Stop: 01/17/20 08:59 Last Admin: 11/19/19 17:14 Dose: 100 mg Trazodone HCl (Desyrel) 50 mg PO HS [facility]; Protocol Stop: 01/08/20 20:59 Last Admin: 11/18/19 20:55 Dose: 50 mg General: demented HEENT: NC/AT, PERRLA, EOMI, anicteric sclerae, throat clear Neck: Supple, No JVD, No thyromegaly, +2 carotid pulse wo bruit, No LAD Lungs: CTAB Cardiovascular: RRR, Normal S1, Normal S2, without murmur Abdomen: non-tender, non-distended Extremities: clear Neurological: no change Internal Medicine Assmt/Plan - Assessment Assessment: 1.DM. 2.HTN. 3.DJD. 4.PSYCHOSIS - Plan Plan: CONTINUE ON CURRENT MEDICATION AND DIET. Nutritional Asmnt/Malnutr-PDOC - Dietary Evaluation Malnutrition Findings (Please click <Entered> for more info): Nutritional Asmnt/Malnutrition Start: 11/13/19 16: 08 Text: Status: Complete Freq: Protocol: Document 11/13/19 16:08 ELTON (Rec: 11/13/19 16:11 ELTON [email or web address]) Nutritional Asmnt/Malnutrition Patient General Information Nutritional Screening Moderate Risk Diagnosis Psychosis Pertinent Medical Hx/Surgical Hx DM, HTN, DJD, Psychosis Subjective Information Pt is a 64-year-old female admitted on 11/09 d/t agitation and psychosis. Pt is eating an estimated 60% of meals x3 days Per Meal/Nutrition Activity Record. Dietary is currently providing an estimated 1900 kcals and 96 gm Pro, per Pt PO intake this is providing an estimated 1140 kcals and 58gm Pro to meet 80% kcal and 100% Pro needs- adequate. Per nurse note (11/13 12:29), Yesterday, patient had abnormally low potassium level , 2.9. Dr. Weiss [Medical Doctor] ordered potassium supplement x 2. At [facility], NOC shift nurse indicated patient took only a partial second dose at 2300. Per Dr. Weiss orders, accounting manager cpa re-deep labs before lunch today. Awaiting results of potassium level. Anthropometrics HT: 5 FT WT: 120 LB (54.55 kg) BMI: 23.46 (Normal) GI/ Skin Integrity GI: WNL, Soft, Non-tender BM: 11/11 x1 I/O: 1320/Not Noted Skin: WNL, Intact Jeancarlos: 14 Diet Order: [facility] Estimated Energy Needs: ( Geriatric, CBW) 6588-9675 kcals (25-30 kcals/ kg) 55-65g Pro (1.0-1.2 g/kg) 8679-6776 ml (25-30 ml/kg) Current Diet Order/ Nutrition Support [facility] Pertinent Medications Hydrochlorothiazide, Lantus, INS-SS, MOM (PRN) Pertinent Labs POC Glucose (last 24 hours): 181, 118, 157 11/12: K 2.9, Glucose 173, BUN/ Cr 32/1.01, GFR 71 Nutritional Hx/Data Height 1.52 m Height (Calculated Centimeters) 152.4 Current Weight (lbs) 54.431 kg Weight (Calculated Kilograms) 54.4 Weight (Calculated Grams) 67548.1 [place] Body Weight 100 LB (45.45 kg) % [place] Body Weight 120 Body Mass Index (BMI) 23.4 Weight Status Approriate GI Symptoms Last BM 11/11 x1 Skin Integrity/Comment: Skin: WNL, Intact Jeancarlos: 14 Current %PO Fair (50-74%) Estimated Nutritional Goals BEE in Kcals: Using Current wt Calories/Kcals/Kg 25-30 Kcals Calculated 2950-1115 Protein: Using Current wt Protein g/k.0-1.2 Protein Calculated 55-65 Fluid: ml 0319-7015 ml (25-30 ml/kg) Nutritional Problem 1. Problem Problem Impaired nutrient utilization Etiology r/t endocrine dysfunction Signs/Symptoms: aeb Hx DM, labs (11/12) Glucose 173, POC Glucose (last 24 hours): 181, 118, 157. Malnutrition Related to Morbid Obesity Malnutrition related to morbid obesity No Intervention/Recommendation Comments 1.Continue CCHO diet as tolerated. 2.Continue antihyperglycemic medications for glucose control per MD order. Expected Outcomes/Goals Expected Outcomes/Goals 1.PO intake to continue to meet >75% of estimated nutritional needs. 2.Monitor PO intake, wt, nutrition related labs, and skin integrity. 3.F/U as low risk in 7-10 days , 11/20-11/23
[2019-11-19] MEDS: Insulin Glargine 100 units/ml 10ml Vial SUBQ SCH (20:49)
[2019-11-20] MEDS: INSULIN LISPRO SLIDING SCALE 100 UNITS/ML UNIT SUBQ SCH ×4 (06:36→21:39)
--- NOTE | 2019-11-20 08:29 | Progress Notes ---
DATE: SUBJECTIVE: Chart was reviewed and the patient interviewed. Also discussed the patient's condition with the staff and reviewed records and labs. The patient continued to be confused and forgetful. The patient also still has labile affect and easily agitated with severe mood swings. The patient also still needs lots of redirections. Otherwise, the patient is compliant with taking her medications with no side effects of medications. It seems that the patient is slightly easier to redirect her. ASSESSMENT: The patient is still agitated. TREATMENT PLAN: Continue to monitor behavior and condition closely. Depakote blood level that was done yesterday came to be 60. We will continue same dose and continue to work on her irritability and agitation and discharge plans. JOB# [id number]
--- NOTE | 2019-11-20 17:52 | Internal Medicine Prog Note ---
Internal Medicine Subjective - Subjective Service Date: 11/20/19 Patient seen and examined:: without staff (she is doing better) Patient is:: awake, verbal, in bed, talking, agitated, confused Per staff patient has:: no adverse event Internal Medicine Objective - Results Recent Labs: Laboratory Last Values POC Glucose 94 MG/DL (70 - 105) 11/20/19 16:42 - Physical Exam Vitals and I&O: Vital Signs Temp 97.6 F 11/20/19 14:00 Pulse 79 11/20/19 14:00 Resp 20 11/20/19 14:00 BP 120/87 11/20/19 14:00 Pulse Ox 96 11/20/19 14:00 Intake & Output 11/19/19 11/20/19 11/20/19 18:59 06:59 18:59 Intake Total 794 140 5580 Balance 550 397 9033 Intake: Oral 491 337 0186 Other: # Voids 3 2 # Bowel Movements 0 0 1 Active Medications: Current Medications Acetaminophen (Tylenol) 650 mg PO Q4HR PRN PRN Reason: Pain (Mild 1-3) Stop: 01/08/20 19:02 Acetaminophen (Tylenol Extra Strength) 1,000 mg PO Q6H PRN PRN Reason: Pain (Moderate 4-6) Stop: 01/08/20 19:02 Acetaminophen (Tylenol) 650 mg PO Q4HR PRN PRN Reason: Temperature Above 100 Stop: 01/10/20 16:20 Divalproex Sodium (Depakote Dr) 500 mg PO BID [facility]; Protocol Stop: 01/09/20 10:59 Last Admin: 11/20/19 17:35 Dose: 500 mg Donepezil HCl (Aricept) 10 mg PO [facility] Stop: 01/12/20 20:59 Last Admin: 11/19/19 20:48 Dose: 10 mg Hydrochlorothiazide (Hctz) 12.5 mg PO DAILY [facility] Stop: 01/09/20 08:59 Last Admin: 11/20/19 08:41 Dose: 12.5 mg Insulin Glargine (Lantus Insulin) 10 units SUBQ [facility] Stop: 01/08/20 21:59 Last Admin: 11/19/19 20:49 Dose: 10 units Insulin Human Lispro (Humalog Insulin Sliding Scale) 0 units SUBQ [facility]; Protocol Stop: 01/08/20 20:59 Last Admin: 11/20/19 17:34 Dose: Not Given Lisinopril 10 mg/ Lisinopril (20 mg) 30 mg PO DAILY [facility] Stop: 01/10/20 08:59 Last Admin: 11/20/19 08:40 Dose: 30 mg Lorazepam (Ativan) 0.5 mg PO Q6HR PRN; Protocol PRN Reason: Anxiety Stop: 01/08/20 19:02 Last Admin: 11/20/19 08:40 Dose: 0.5 mg Magnesium Hydroxide (Milk Of Magnesia) 30 ml PO HS PRN PRN Reason: Constipation Quetiapine Fumarate (Seroquel) 100 mg PO BID [facility]; Protocol Stop: 01/17/20 08:59 Last Admin: 11/20/19 17:35 Dose: 100 mg Trazodone HCl (Desyrel) 50 mg PO HS [facility]; Protocol Stop: 01/08/20 20:59 Last Admin: 11/19/19 20:48 Dose: 50 mg General: demented HEENT: NC/AT, PERRLA, EOMI, anicteric sclerae, throat clear Neck: Supple, No JVD, No thyromegaly, +2 carotid pulse wo bruit, No LAD Lungs: CTAB Cardiovascular: RRR, Normal S1, Normal S2, without murmur Abdomen: non-tender, non-distended Extremities: clear Neurological: no change Internal Medicine Assmt/Plan - Assessment Assessment: 1.DM. 2.HTN. 3.DJD. 4.PSYCHOSIS - Plan Plan: CONTINUE ON CURRENT MEDICATION AND DIET. Nutritional Asmnt/Malnutr-PDOC - Dietary Evaluation Malnutrition Findings (Please click <Entered> for more info): Nutritional Asmnt/Malnutrition Start: 11/13/19 16: 08 Text: Status: Complete Freq: Protocol: Document 11/13/19 16:08 ELTON (Rec: 11/13/19 16:11 ELTON [email or web address]) Nutritional Asmnt/Malnutrition Patient General Information Nutritional Screening Moderate Risk Diagnosis Psychosis Pertinent Medical Hx/Surgical Hx DM, HTN, DJD, Psychosis Subjective Information Pt is a 64-year-old female admitted on 11/09 d/t agitation and psychosis. Pt is eating an estimated 60% of meals x3 days Per Meal/Nutrition Activity Record. Dietary is currently providing an estimated 1900 kcals and 96 gm Pro, per Pt PO intake this is providing an estimated 1140 kcals and 58gm Pro to meet 80% kcal and 100% Pro needs- adequate. Per nurse note (11/13 12:29), Yesterday, patient had abnormally low potassium level , 2.9. Dr. Weiss [Medical Doctor] ordered potassium supplement x 2. At [facility], NOC shift nurse indicated patient took only a partial second dose at 2300. Per Dr. Weiss orders, central supply tech re-deep labs before lunch today. Awaiting results of potassium level. Anthropometrics HT: 5 FT WT: 120 LB (54.55 kg) BMI: 23.46 (Normal) GI/ Skin Integrity GI: WNL, Soft, Non-tender BM: 11/11 x1 I/O: 1320/Not Noted Skin: WNL, Intact Jeancarlos: 14 Diet Order: [facility] Estimated Energy Needs: ( Geriatric, CBW) 8141-9002 kcals (25-30 kcals/ kg) 55-65g Pro (1.0-1.2 g/kg) 7431-6749 ml (25-30 ml/kg) Current Diet Order/ Nutrition Support [facility] Pertinent Medications Hydrochlorothiazide, Lantus, INS-SS, MOM (PRN) Pertinent Labs POC Glucose (last 24 hours): 181, 118, 157 11/12: K 2.9, Glucose 173, BUN/ Cr 32/1.01, GFR 71 Nutritional Hx/Data Height 1.52 m Height (Calculated Centimeters) 152.4 Current Weight (lbs) 54.431 kg Weight (Calculated Kilograms) 54.4 Weight (Calculated Grams) 93117.1 [place] Body Weight 100 LB (45.45 kg) % [place] Body Weight 120 Body Mass Index (BMI) 23.4 Weight Status Approriate GI Symptoms Last BM 11/11 x1 Skin Integrity/Comment: Skin: WNL, Intact Jeancarlos: 14 Current %PO Fair (50-74%) Estimated Nutritional Goals BEE in Kcals: Using Current wt Calories/Kcals/Kg 25-30 Kcals Calculated 6338-0977 Protein: Using Current wt Protein g/k.0-1.2 Protein Calculated 55-65 Fluid: ml 9069-3127 ml (25-30 ml/kg) Nutritional Problem 1. Problem Problem Impaired nutrient utilization Etiology r/t endocrine dysfunction Signs/Symptoms: aeb Hx DM, labs (11/12) Glucose 173, POC Glucose (last 24 hours): 181, 118, 157. Malnutrition Related to Morbid Obesity Malnutrition related to morbid obesity No Intervention/Recommendation Comments 1.Continue CCHO diet as tolerated. 2.Continue antihyperglycemic medications for glucose control per MD order. Expected Outcomes/Goals Expected Outcomes/Goals 1.PO intake to continue to meet >75% of estimated nutritional needs. 2.Monitor PO intake, wt, nutrition related labs, and skin integrity. 3.F/U as low risk in 7-10 days , 11/20-11/23
[2019-11-20] MEDS: Insulin Glargine 100 units/ml 10ml Vial SUBQ SCH (21:39)
[2019-11-21] MEDS: INSULIN LISPRO SLIDING SCALE 100 UNITS/ML UNIT SUBQ SCH ×4 (06:41→20:09)
--- NOTE | 2019-11-21 17:47 | Internal Medicine Prog Note ---
Internal Medicine Subjective - Subjective Service Date: 11/21/19 Patient seen and examined:: without staff (SHE IS DOING WELL) Patient is:: awake, verbal, in bed, talking, agitated, confused Per staff patient has:: no adverse event Internal Medicine Objective - Results Recent Labs: Laboratory Last Values POC Glucose 153 MG/DL (70 - 105) H 11/21/19 16:31 - Physical Exam Vitals and I&O: Vital Signs Temp 98.0 F 11/21/19 14:00 Pulse 82 11/21/19 14:00 Resp 18 11/21/19 14:00 BP 96/68 11/21/19 14:00 Pulse Ox 100 11/21/19 14:00 Intake & Output 11/20/19 11/21/19 11/21/19 18:59 06:59 18:59 Intake Total 0582 848 5095 Output Total 1 Balance 3149 013 3044 Intake: Oral 5504 353 9246 Output: Urine/Stool Mix 1 Other: # Voids 1 # Bowel Movements 1 0 1 Active Medications: Current Medications Acetaminophen (Tylenol) 650 mg PO Q4HR PRN PRN Reason: Pain (Mild 1-3) Stop: 01/08/20 19:02 Acetaminophen (Tylenol Extra Strength) 1,000 mg PO Q6H PRN PRN Reason: Pain (Moderate 4-6) Stop: 01/08/20 19:02 Acetaminophen (Tylenol) 650 mg PO Q4HR PRN PRN Reason: Temperature Above 100 Stop: 01/10/20 16:20 Divalproex Sodium (Depakote Dr) 500 mg PO BID [facility]; Protocol Stop: 01/09/20 10:59 Last Admin: 11/21/19 17:09 Dose: 500 mg Donepezil HCl (Aricept) 10 mg PO HS [facility] Stop: 01/12/20 20:59 Last Admin: 11/20/19 21:24 Dose: 10 mg Hydrochlorothiazide (Hctz) 12.5 mg PO DAILY [facility] Stop: 01/09/20 08:59 Last Admin: 11/21/19 09:21 Dose: 12.5 mg Insulin Glargine (Lantus Insulin) 10 units SUBQ HS [facility] Stop: 01/08/20 21:59 Last Admin: 11/20/19 21:39 Dose: 10 units Insulin Human Lispro (Humalog Insulin Sliding Scale) 0 units SUBQ [facility]; Protocol Stop: 01/08/20 20:59 Last Admin: 11/21/19 17:05 Dose: 2 units Lisinopril 10 mg/ Lisinopril (20 mg) 30 mg PO DAILY [facility] Stop: 01/10/20 08:59 Last Admin: 11/21/19 09:21 Dose: 30 mg Lorazepam (Ativan) 0.5 mg PO Q6HR PRN; Protocol PRN Reason: Anxiety Stop: 01/08/20 19:02 Last Admin: 11/20/19 08:40 Dose: 0.5 mg Magnesium Hydroxide (Milk Of Magnesia) 30 ml PO HS PRN PRN Reason: Constipation Quetiapine Fumarate (Seroquel) 100 mg PO BID [facility]; Protocol Stop: 01/17/20 08:59 Last Admin: 11/21/19 17:09 Dose: 100 mg Trazodone HCl (Desyrel) 50 mg PO HS [facility]; Protocol Stop: 01/08/20 20:59 Last Admin: 11/20/19 21:24 Dose: 50 mg General: demented HEENT: NC/AT, PERRLA, EOMI, anicteric sclerae, throat clear Neck: Supple, No JVD, No thyromegaly, +2 carotid pulse wo bruit, No LAD Lungs: CTAB Cardiovascular: RRR, Normal S1, Normal S2, without murmur Abdomen: non-tender, non-distended Extremities: clear Neurological: no change Internal Medicine Assmt/Plan - Assessment Assessment: 1.DM. 2.HTN. 3.DJD. 4.PSYCHOSIS - Plan Plan: CONTINUE ON CURRENT MEDICATION AND DIET. Nutritional Asmnt/Malnutr-PDOC - Dietary Evaluation Malnutrition Findings (Please click <Entered> for more info): Nutritional Asmnt/Malnutrition Start: 11/13/19 16: 08 Text: Status: Complete Freq: Protocol: Document 11/13/19 16:08 ELTON (Rec: 11/13/19 16:11 ELTON [email or web address]) Nutritional Asmnt/Malnutrition Patient General Information Nutritional Screening Moderate Risk Diagnosis Psychosis Pertinent Medical Hx/Surgical Hx DM, HTN, DJD, Psychosis Subjective Information Pt is a 64-year-old female admitted on 11/09 d/t agitation and psychosis. Pt is eating an estimated 60% of meals x3 days Per Meal/Nutrition Activity Record. Dietary is currently providing an estimated 1900 kcals and 96 gm Pro, per Pt PO intake this is providing an estimated 1140 kcals and 58gm Pro to meet 80% kcal and 100% Pro needs- adequate. Per nurse note (11/13 12:29), Yesterday, patient had abnormally low potassium level , 2.9. Dr. Weiss [Medical Doctor] ordered potassium supplement x 2. At [facility] shift nurse indicated patient took only a partial second dose at 2300. Per Dr. Weiss orders, creative developer re-deep labs before lunch today. Awaiting results of potassium level. Anthropometrics HT: 5 FT WT: 120 LB (54.55 kg) BMI: 23.46 (Normal) GI/ Skin Integrity GI: WNL, Soft, Non-tender BM: 11/11 x1 I/O: 1320/Not Noted Skin: WNL, Intact Jeancarlos: 14 Diet Order: [facility] Estimated Energy Needs: ( Geriatric, CBW) 2231-0995 kcals (25-30 kcals/ kg) 55-65g Pro (1.0-1.2 g/kg) 6359-6351 ml (25-30 ml/kg) Current Diet Order/ Nutrition Support [facility] Pertinent Medications Hydrochlorothiazide, Lantus, INS-SS, MOM (PRN) Pertinent Labs POC Glucose (last 24 hours): 181, 118, 157 11/12: K 2.9, Glucose 173, BUN/ Cr 32/1.01, GFR 71 Nutritional Hx/Data Height 1.52 m Height (Calculated Centimeters) 152.4 Current Weight (lbs) 54.431 kg Weight (Calculated Kilograms) 54.4 Weight (Calculated Grams) 87842.1 [place] Body Weight 100 LB (45.45 kg) % [place] Body Weight 120 Body Mass Index (BMI) 23.4 Weight Status Approriate GI Symptoms Last BM 11/11 x1 Skin Integrity/Comment: Skin: WNL, Intact Jeancarlos: 14 Current %PO Fair (50-74%) Estimated Nutritional Goals BEE in Kcals: Using Current wt Calories/Kcals/Kg 25-30 Kcals Calculated 3218-8860 Protein: Using Current wt Protein g/k.0-1.2 Protein Calculated 55-65 Fluid: ml 9967-5075 ml (25-30 ml/kg) Nutritional Problem 1. Problem Problem Impaired nutrient utilization Etiology r/t endocrine dysfunction Signs/Symptoms: aeb Hx DM, labs (11/12) Glucose 173, POC Glucose (last 24 hours): 181, 118, 157. Malnutrition Related to Morbid Obesity Malnutrition related to morbid obesity No Intervention/Recommendation Comments 1.Continue CCHO diet as tolerated. 2.Continue antihyperglycemic medications for glucose control per MD order. Expected Outcomes/Goals Expected Outcomes/Goals 1.PO intake to continue to meet >75% of estimated nutritional needs. 2.Monitor PO intake, wt, nutrition related labs, and skin integrity. 3.F/U as low risk in 7-10 days , 11/20-11/23
[2019-11-21] MEDS: Insulin Glargine 100 units/ml 10ml Vial SUBQ SCH (20:09)
--- NOTE | 2019-11-22 02:24 | Progress Notes ---
DATE: SUBJECTIVE: Chart was reviewed and the patient interviewed. Also discussed the patient's condition with the staff and reviewed records and labs. The patient is still depressed and is still easily agitated. The patient also is still withdrawn and tends to stay by herself in her room most of the time and she still has episodes of agitation, but at the same time easier to redirect her and seems to be slightly less agitated. She is still suspicious and is still paranoid. Otherwise, the patient continued to comply with taking her medications. The patient's Depakote level is within normal and 60 and that was done on 11/19/2019. At the same time, we will continue monitoring behavior and continue working on her irritability and agitation and follow up. JOB# [id number]
[2019-11-22] MEDS: INSULIN LISPRO SLIDING SCALE 100 UNITS/ML UNIT SUBQ SCH ×4 (06:32→20:09)
[2019-11-22] MEDS: Insulin Glargine 100 units/ml 10ml Vial SUBQ SCH (20:09)
--- NOTE | 2019-11-22 21:14 | Internal Medicine Prog Note ---
Internal Medicine Subjective - Subjective Service Date: 11/22/19 Patient seen and examined:: without staff (SHE IS DOING WELL) Patient is:: awake, verbal, in bed, talking, agitated, confused Per staff patient has:: no adverse event Internal Medicine Objective - Results Recent Labs: Laboratory Last Values POC Glucose 177 MG/DL (70 - 105) H 11/22/19 19:51 - Physical Exam Vitals and I&O: Vital Signs Temp 98.6 F 11/22/19 14:00 Pulse 78 11/22/19 14:00 Resp 20 11/22/19 14:00 BP 138/78 11/22/19 14:00 Pulse Ox 97 11/22/19 14:00 Intake & Output 11/22/19 11/22/19 11/23/19 06:59 18:59 06:59 Intake Total 480 800 Output Total 1 Balance 479 800 Intake: Oral 480 800 Output: Urine/Stool Mix 1 Other: # Voids 1 3 # Bowel Movements 1 Active Medications: Current Medications Acetaminophen (Tylenol) 650 mg PO Q4HR PRN PRN Reason: Pain (Mild 1-3) Stop: 01/08/20 19:02 Acetaminophen (Tylenol Extra Strength) 1,000 mg PO Q6H PRN PRN Reason: Pain (Moderate 4-6) Stop: 01/08/20 19:02 Acetaminophen (Tylenol) 650 mg PO Q4HR PRN PRN Reason: Temperature Above 100 Stop: 01/10/20 16:20 Divalproex Sodium (Depakote Dr) 500 mg PO BID [facility]; Protocol Stop: 01/09/20 10:59 Last Admin: 11/22/19 16:34 Dose: 500 mg Donepezil HCl (Aricept) 10 mg PO HS [facility] Stop: 01/12/20 20:59 Last Admin: 11/22/19 20:09 Dose: 10 mg Hydrochlorothiazide (Hctz) 12.5 mg PO DAILY [facility] Stop: 01/09/20 08:59 Last Admin: 11/22/19 08:47 Dose: 12.5 mg Insulin Glargine (Lantus Insulin) 10 units SUBQ [facility] Stop: 01/08/20 21:59 Last Admin: 11/22/19 20:09 Dose: 10 units Insulin Human Lispro (Humalog Insulin Sliding Scale) 0 units SUBQ [facility]; Protocol Stop: 01/08/20 20:59 Last Admin: 11/22/19 20:09 Dose: 2 units Lisinopril 10 mg/ Lisinopril (20 mg) 30 mg PO DAILY [facility] Stop: 01/10/20 08:59 Last Admin: 11/22/19 08:47 Dose: 30 mg Lorazepam (Ativan) 0.5 mg PO Q6HR PRN; Protocol PRN Reason: Anxiety Stop: 01/08/20 19:02 Last Admin: 11/20/19 08:40 Dose: 0.5 mg Magnesium Hydroxide (Milk Of Magnesia) 30 ml PO HS PRN PRN Reason: Constipation Quetiapine Fumarate (Seroquel) 100 mg PO BID [facility]; Protocol Stop: 01/17/20 08:59 Last Admin: 11/22/19 16:34 Dose: 100 mg Trazodone HCl (Desyrel) 50 mg PO HS [facility]; Protocol Stop: 01/08/20 20:59 Last Admin: 11/22/19 20:09 Dose: 50 mg General: demented HEENT: NC/AT, PERRLA, EOMI, anicteric sclerae, throat clear Neck: Supple, No JVD, No thyromegaly, +2 carotid pulse wo bruit, No LAD Lungs: CTAB Cardiovascular: RRR, Normal S1, Normal S2, without murmur Abdomen: non-tender, non-distended Extremities: clear Neurological: no change Internal Medicine Assmt/Plan - Assessment Assessment: 1.DM. 2.HTN. 3.DJD. 4.PSYCHOSIS - Plan Plan: CONTINUE ON CURRENT MEDICATION AND DIET. Nutritional Asmnt/Malnutr-PDOC - Dietary Evaluation Malnutrition Findings (Please click <Entered> for more info): Nutritional Asmnt/Malnutrition Start: 11/13/19 16: 08 Text: Status: Complete Freq: Protocol: Document 11/13/19 16:08 ELTON (Rec: 11/13/19 16:11 ELTON [id number]) Nutritional Asmnt/Malnutrition Patient General Information Nutritional Screening Moderate Risk Diagnosis Psychosis Pertinent Medical Hx/Surgical Hx DM, HTN, DJD, Psychosis Subjective Information Pt is a 64-year-old female admitted on 11/09 d/t agitation and psychosis. Pt is eating an estimated 60% of meals x3 days Per Meal/Nutrition Activity Record. Dietary is currently providing an estimated 1900 kcals and 96 gm Pro, per Pt PO intake this is providing an estimated 1140 kcals and 58gm Pro to meet 80% kcal and 100% Pro needs- adequate. Per nurse note (11/13 12:29), Yesterday, patient had abnormally low potassium level , 2.9. Dr. Weiss [Medical Doctor] ordered potassium supplement x 2. At [facility], NOC shift nurse indicated patient took only a partial second dose at 2300. Per Dr. Weiss orders, credit representative re-deep labs before lunch today. Awaiting results of potassium level. Anthropometrics HT: 5 FT WT: 120 LB (54.55 kg) BMI: 23.46 (Normal) GI/ Skin Integrity GI: WNL, Soft, Non-tender BM: 11/11 x1 I/O: 1320/Not Noted Skin: WNL, Intact Jeancarlos: 14 Diet Order: [facility] Estimated Energy Needs: ( Geriatric, CBW) 5936-1485 kcals (25-30 kcals/ kg) 55-65g Pro (1.0-1.2 g/kg) 9273-0032 ml (25-30 ml/kg) Current Diet Order/ Nutrition Support [facility] Pertinent Medications Hydrochlorothiazide, Lantus, INS-SS, MOM (PRN) Pertinent Labs POC Glucose (last 24 hours): 181, 118, 157 11/12: K 2.9, Glucose 173, BUN/ Cr 32/1.01, GFR 71 Nutritional Hx/Data Height 1.52 m Height (Calculated Centimeters) 152.4 Current Weight (lbs) 54.431 kg Weight (Calculated Kilograms) 54.4 Weight (Calculated Grams) 28001.1 [place] Body Weight 100 LB (45.45 kg) % [place] Body Weight 120 Body Mass Index (BMI) 23.4 Weight Status Approriate GI Symptoms Last BM 11/11 x1 Skin Integrity/Comment: Skin: WNL, Intact Jeancarlos: 14 Current %PO Fair (50-74%) Estimated Nutritional Goals BEE in Kcals: Using Current wt Calories/Kcals/Kg 25-30 Kcals Calculated 9889-6183 Protein: Using Current wt Protein g/k.0-1.2 Protein Calculated 55-65 Fluid: ml 7520-1754 ml (25-30 ml/kg) Nutritional Problem 1. Problem Problem Impaired nutrient utilization Etiology r/t endocrine dysfunction Signs/Symptoms: aeb Hx DM, labs (11/12) Glucose 173, POC Glucose (last 24 hours): 181, 118, 157. Malnutrition Related to Morbid Obesity Malnutrition related to morbid obesity No Intervention/Recommendation Comments 1.Continue CCHO diet as tolerated. 2.Continue antihyperglycemic medications for glucose control per MD order. Expected Outcomes/Goals Expected Outcomes/Goals 1.PO intake to continue to meet >75% of estimated nutritional needs. 2.Monitor PO intake, wt, nutrition related labs, and skin integrity. 3.F/U as low risk in 7-10 days , 11/20-11/23
--- NOTE | 2019-11-23 02:21 | Progress Notes ---
DATE: 11/22/2019 SUBJECTIVE: The patient was seen and evaluated. Covering for Dr. De Guzman. IDENTIFYING DATA: A 64-year-old female brought in here from [facility] for agitation and psychotic behavior. Nursing staff reported overnight the patient observed to be disorganized, at times isolative. Today on [id number] evaluation, limited historian, needs a lot of redirection to maintain a simple conversation. She easily derails, easily can be forgetful and observed to be having mood swings. ASSESSMENT AND PLAN: The patient continues to be with combative behavior. Depakote levels recently came back normal at 60 ____. We will continue with reconciliation review, Aricept 10 mg, Depakote 500 mg p.o. b.i.d. with Seroquel 100 b.i.d. JOB# [id number]
[2019-11-23] MEDS: INSULIN LISPRO SLIDING SCALE 100 UNITS/ML UNIT SUBQ SCH ×4 (06:57→20:08)
--- NOTE | 2019-11-23 16:41 | Internal Medicine Prog Note ---
Internal Medicine Subjective - Subjective Service Date: 11/23/19 Patient seen and examined:: without staff (SHE FEELS WELL) Patient is:: awake, verbal, in bed, talking, agitated, confused Per staff patient has:: no adverse event Internal Medicine Objective - Results Recent Labs: Laboratory Last Values POC Glucose 125 MG/DL (70 - 105) H 11/23/19 16:22 - Physical Exam Vitals and I&O: Vital Signs Temp 98.1 F 11/23/19 15:46 Pulse 86 11/23/19 15:46 Resp 17 11/23/19 15:46 BP 105/69 11/23/19 15:46 Pulse Ox 99 11/23/19 15:46 Intake & Output 11/22/19 11/23/19 11/23/19 18:59 06:59 18:59 Intake Total 800 240 240 Balance 800 240 240 Intake: Oral 800 240 240 Other: # Voids 3 1 # Bowel Movements 1 Active Medications: Current Medications Acetaminophen (Tylenol) 650 mg PO Q4HR PRN PRN Reason: Pain (Mild 1-3) Stop: 01/08/20 19:02 Acetaminophen (Tylenol Extra Strength) 1,000 mg PO Q6H PRN PRN Reason: Pain (Moderate 4-6) Stop: 01/08/20 19:02 Acetaminophen (Tylenol) 650 mg PO Q4HR PRN PRN Reason: Temperature Above 100 Stop: 01/10/20 16:20 Divalproex Sodium (Depakote Dr) 500 mg PO BID [facility]; Protocol Stop: 01/09/20 10:59 Last Admin: 11/23/19 16:29 Dose: 500 mg Donepezil HCl (Aricept) 10 mg PO HS [facility] Stop: 01/12/20 20:59 Last Admin: 11/22/19 20:09 Dose: 10 mg Hydrochlorothiazide (Hctz) 12.5 mg PO DAILY [facility] Stop: 01/09/20 08:59 Last Admin: 11/23/19 09:10 Dose: 12.5 mg Insulin Glargine (Lantus Insulin) 10 units SUBQ [facility] Stop: 01/08/20 21:59 Last Admin: 11/22/19 20:09 Dose: 10 units Insulin Human Lispro (Humalog Insulin Sliding Scale) 0 units SUBQ [facility]; Protocol Stop: 01/08/20 20:59 Last Admin: 11/23/19 16:24 Dose: Not Given Lisinopril 10 mg/ Lisinopril (20 mg) 30 mg PO DAILY [facility] Stop: 01/10/20 08:59 Last Admin: 11/23/19 09:12 Dose: 30 mg Lorazepam (Ativan) 0.5 mg PO Q6HR PRN; Protocol PRN Reason: Anxiety Stop: 01/08/20 19:02 Last Admin: 11/20/19 08:40 Dose: 0.5 mg Magnesium Hydroxide (Milk Of Magnesia) 30 ml PO HS PRN PRN Reason: Constipation Quetiapine Fumarate (Seroquel) 100 mg PO BID [facility]; Protocol Stop: 01/17/20 08:59 Last Admin: 11/23/19 16:29 Dose: Not Given Trazodone HCl (Desyrel) 50 mg PO HS [facility]; Protocol Stop: 01/08/20 20:59 Last Admin: 11/22/19 20:09 Dose: 50 mg General: demented HEENT: NC/AT, PERRLA, EOMI, anicteric sclerae, throat clear Neck: Supple, No JVD, No thyromegaly, +2 carotid pulse wo bruit, No LAD Lungs: CTAB Cardiovascular: RRR, Normal S1, Normal S2, without murmur Abdomen: non-tender, non-distended Extremities: clear Neurological: no change Internal Medicine Assmt/Plan - Assessment Assessment: 1.DM. 2.HTN. 3.DJD. 4.PSYCHOSIS - Plan Plan: CONTINUE ON CURRENT MEDICATION AND DIET. Nutritional Asmnt/Malnutr-PDOC - Dietary Evaluation Malnutrition Findings (Please click <Entered> for more info): Nutritional Asmnt/Malnutrition Start: 11/13/19 16: 08 Text: Status: Complete Freq: Protocol: Document 11/13/19 16:08 ELTON (Rec: 11/13/19 16:11 ELTON [id number]) Nutritional Asmnt/Malnutrition Patient General Information Nutritional Screening Moderate Risk Diagnosis Psychosis Pertinent Medical Hx/Surgical Hx DM, HTN, DJD, Psychosis Subjective Information Pt is a 64-year-old female admitted on 11/09 d/t agitation and psychosis. Pt is eating an estimated 60% of meals x3 days Per Meal/Nutrition Activity Record. Dietary is currently providing an estimated 1900 kcals and 96 gm Pro, per Pt PO intake this is providing an estimated 1140 kcals and 58gm Pro to meet 80% kcal and 100% Pro needs- adequate. Per nurse note (11/13 12:29), Yesterday, patient had abnormally low potassium level , 2.9. Dr. Weiss [Medical Doctor] ordered potassium supplement x 2. At [facility], NOC shift nurse indicated patient took only a partial second dose at 2300. Per Dr. Weiss orders, business administrator re-deep labs before lunch today. Awaiting results of potassium level. Anthropometrics HT: 5 FT WT: 120 LB (54.55 kg) BMI: 23.46 (Normal) GI/ Skin Integrity GI: WNL, Soft, Non-tender BM: 11/11 x1 I/O: 1320/Not Noted Skin: WNL, Intact Jeancarlos: 14 Diet Order: [facility] [place] Estimated Energy Needs: ( Geriatric, CBW) 9589-7047 kcals (25-30 kcals/ kg) 55-65g Pro (1.0-1.2 g/kg) 5166-3291 ml (25-30 ml/kg) Current Diet Order/ Nutrition Support [facility] [place] Pertinent Medications Hydrochlorothiazide, Lantus, INS-SS, MOM (PRN) Pertinent Labs POC Glucose (last 24 hours): 181, 118, 157 11/12: K 2.9, Glucose 173, BUN/ Cr 32/1.01, GFR 71 Nutritional Hx/Data Height 1.52 m Height (Calculated Centimeters) 152.4 Current Weight (lbs) 54.431 kg Weight (Calculated Kilograms) 54.4 Weight (Calculated Grams) 88340.1 [place] Body Weight 100 LB (45.45 kg) % [place] Body Weight 120 Body Mass Index (BMI) 23.4 Weight Status Approriate GI Symptoms Last BM 11/11 x1 Skin Integrity/Comment: Skin: WNL, Intact Jeancarlos: 14 Current %PO Fair (50-74%) Estimated Nutritional Goals BEE in Kcals: Using Current wt Calories/Kcals/Kg 25-30 Kcals Calculated 3845-2571 Protein: Using Current wt Protein g/k.0-1.2 Protein Calculated 55-65 Fluid: ml 0083-6206 ml (25-30 ml/kg) Nutritional Problem 1. Problem Problem Impaired nutrient utilization Etiology r/t endocrine dysfunction Signs/Symptoms: aeb Hx DM, labs (11/12) Glucose 173, POC Glucose (last 24 hours): 181, 118, 157. Malnutrition Related to Morbid Obesity Malnutrition related to morbid obesity No Intervention/Recommendation Comments 1.Continue CCHO diet as tolerated. 2.Continue antihyperglycemic medications for glucose control per MD order. Expected Outcomes/Goals Expected Outcomes/Goals 1.PO intake to continue to meet >75% of estimated nutritional needs. 2.Monitor PO intake, wt, nutrition related labs, and skin integrity. 3.F/U as low risk in 7-10 days , 11/20-11/23
[2019-11-23] MEDS: Insulin Glargine 100 units/ml 10ml Vial SUBQ SCH (20:08)
--- NOTE | 2019-11-24 02:45 | Progress Notes ---
DATE: 11/23/2019 SUBJECTIVE: In [id number]-tl-lwyg evaluation, minimally participating, easily forgetful. MENTAL STATUS EXAMINATION: Mood swings are noted, easily disorganized. ASSESSMENT AND PLAN: A 64-year-old female who continues to need a lot of redirection. We will continue monitoring ____ recent adjustments of medications, which include Seroquel, Depakote and Aricept. [facility]# [id number]
[2019-11-24] MEDS: INSULIN LISPRO SLIDING SCALE 100 UNITS/ML UNIT SUBQ SCH ×3 (06:38→16:35)
--- NOTE | 2019-11-24 19:28 | Discharge Summary ---
DATE OF DISCHARGE: 11/24/2019 AGE: 64. SEX: Female. PHYSICIAN: Dr. De Guzman. PRIMARY DIAGNOSIS: Schizophrenic disorder, unspecified. SECONDARY DIAGNOSIS: Dementia, moderate to severe, with psychotic features. MEDICAL DIAGNOSES: 1. Hypertension. 2. Diabetes mellitus that is insulin-dependent. REASON FOR HOSPITALIZATION: The patient was admitted to the hospital [facility] because of increased agitation and irritability and aggressive behavior. HOSPITAL COURSE: The patient continued to be in irritable mood and agitated. The patient also is having at times mood swings as well as paranoia and suspicious. The patient also was started on Depakote, dose adjusted to 500 mg twice a day. She also was started on Seroquel and the dose adjusted to 100 mg twice a day. The patient also has difficulty sleeping at night and the trazodone was given in a dose of 50 mg every day. Gradually, the patient's affect was brighter. The patient was less irritable and less agitated and interacted more with other with less agitation and less irritability, but she was still confused and forgetful. The patient was discharged from the hospital and patient was admitted to a facility [facility]. AFTER DISCHARGE PLANS: The patient discharged from the hospital to [facility] with plans to be followed by the psychiatrist there. EXPECTED OUTCOME AFTER DISCHARGE: Fair if the patient continues psychotropic medications and to follow up with discharge plans. [facility]# [id number]
--- NOTE | 2019-11-24 23:44 | Progress Notes ---
DATE: SUBJECTIVE: Chart was reviewed and the patient interviewed. Also discussed the patient's condition with the staff and reviewed records and labs. The patient's affect is brighter, although she is still exhibiting some irritability, but not as much. The patient also is easier to follow directions. The patient's daughter asking to admit the patient to psych facility and rehabilitation case coordinator is working on getting her there. At the same time, the patient came from [facility] and either patient can go to [facility] or to the new facility of her daughter's choice. JOB# [id number]
== END 2019-11-24 16:40 | DRG 884 ==
LOC: GERO 11:55
PROVIDERS: ADMIT Psychiatry & Neurology Psychiatry; ATTEND Psychiatry & Neurology Psychiatry
DX: F03.91 Unspecified dementia, unspecified severity, with behavioral disturbance (principal); I10 Essential (primary) hypertension; M19.90 Unspecified osteoarthritis, unspecified site; E11.9 Type 2 diabetes mellitus without complications; Z79.4 Long term (current) use of insulin
CPT/HCPCS: 82948-90; 83036-90; 97530; G0410; J1815; X3904; Z7610